=== PATIENT | female | born 1970 | race Caucasian/White ===

== ENCOUNTER 2020-04-25 04:42 | Inpatient (IN) | payer MEDICAID ==
[~2020-04-25] VITALS: Ht 160 cm; Wt 81.8 kg
[~2020-04-25 04:42] MED LIST: CALC0.2535 PO; CARV3.12 PO; CLON0.1T2 PO; FAMO-128 PO; FLUO-167 PO; FOLI0.8T22 PO; FURO-149 PO; GABA300C PO; INSU100I31 SQ; LABE100T5 PO
[2020-04-25 06:28] LABS: BASOPHILS # (AUTO) 0.1 X10'3 (0-0.2); BASOPHILS % (AUTO) 0.6 % (0-1); EOSINOPHILS % (AUTO) 0 % (0-6); HEMATOCRIT 27.8 % (35.0-45.0); HEMOGLOBIN 9.4 g/dl (12.0-16.0); LYMPHOCYTES # (AUTO) 0.4 X10'3 (1.1-4.8); LYMPHOCYTES % (AUTO) 4.6 % (21-51); MEAN CORPUSCULAR HEMOGLOBIN 31.1 PG (27.0-31.0); MEAN CORPUSCULAR HGB CONC 33.6 g/dL (33.0-36.5); MEAN CORPUSCULAR VOLUME 92.4 FL (78-98); MEAN PLATELET VOLUME 8.5 FL (7.4-10.4); MONOCYTES # (AUTO) 0.5 X10'3 (0-0.9); MONOCYTES % (AUTO) 5.9 % (2-12); NEUTROPHILS # (AUTO) 8.2 X10'3 (1.8-7.7); NEUTROPHILS % (AUTO) 88.9 % (42-75); PLATELET COUNT 235 X10'3 (140-440); RED BLOOD COUNT 3.01 X10'6 (4.20-5.60); RED CELL DISTRIBUTION WIDTH 21.4 % (11.5-14.5); WHITE BLOOD COUNT 9.2 X10'3 (4.5-11.0)
[2020-04-25 06:43] LABS: ALANINE AMINOTRANSFERASE 38 U/L (12-78); ALBUMIN 3.4 G/DL (3.4-5.0); ALBUMIN/GLOBULIN RATIO 0.8 (1.1-1.5); ALKALINE PHOSPHATASE 97 IU/L (46-116); ANION GAP 18 (8-16); ASPARTATE AMINO TRANSFERASE 15 U/L (10-37); BILIRUBIN,TOTAL 0.8 MG/DL (0.1-1.0); BLOOD UREA NITROGEN 95 MG/DL (7-18); BUN/CREATININE RATIO 7.9 (6.6-38.0); CALCIUM 9.6 MG/DL (8.5-10.1); CHLORIDE 107 MMOL/L (99-107); CREATININE 12.01 MG/DL (0.40-0.90); GLUCOSE 153 MG/DL (70-104); POTASSIUM 5.7 MMOL/L (3.5-5.1); SODIUM 145 MMOL/L (135-145); TOTAL CARBON DIOXIDE 20.1 MMOL/L (24-32); TOTAL PROTEIN 7.6 G/DL (6.4-8.2); eGFR 3 ML/MIN
[2020-04-25 06:48] LABS: LIPASE 96 U/L (73-393); MAGNESIUM 2.7 MG/DL (1.5-2.4); PHOSPHORUS 8.9 MG/DL (2.3-4.5)
[2020-04-25 07:01] LABS: ANISOCYTOSIS 3+; PLATELET ESTIMATE NORMAL; POLYCHROMASIA 1+
[2020-04-25 07:02] LABS: ELLIPTOCYTES 1+; SCHISTOCYTES FEW
[2020-04-25] MEDS ORDERED: acetaminophen 325mg tablet PO PRN (08:35)
[2020-04-25] MEDS ORDERED: epoetin 20,000 units/ml inj IV ONE (08:35)
[2020-04-25] MEDS ORDERED: normal saline 1000ml 250 ML IV PRN (08:35)
[2020-04-25] MEDS ORDERED: heparin 1,000unit/ml 10ml vial 10 ML IV ONE (08:35)
[2020-04-25] MEDS ORDERED: heparin 1,000 units/ml 10ml inj HE ONE ×2 (08:40)
[2020-04-25] MEDS: ondansetron/PF 4mg/2ml inj IV PRN ×2 (10:45→16:59)
--- NOTE | 2020-04-25 12:00 | NUR ---
notified charge nurse parminder that pt is waiting for dialysis her bp is 217 systolic and pt is getting upset as per charge she is suppose to get room upstair,parminder is going to call to get the information about her plan.
--- NOTE | 2020-04-25 12:18 | NUR ---
spoke to dr downs regarding pt condition ,notified that pt is c/o nausea,bloating ,high bp with pending dialysis, pt was medicated at 1047 for nausea and now again she is c/o nausea as per md medicate her with zofran 4 mg iv once and do med rec leena she can get her routine meds.will follow the orders.
[2020-04-25] MEDS ORDERED: ondansetron/PF 4mg/2ml inj IV ONE (12:25)
[2020-04-25] MEDS ORDERED: CALC668T PO (12:29)
[2020-04-25] MEDS ORDERED: NIFE-33 PO (12:29)
[2020-04-25] MEDS ORDERED: LISI-600 PO (12:29)
--- NOTE | 2020-04-25 12:43 | NUR ---
unable to collect urine specimen as it got contaminated informed the pt next time if she urinate do not throw tissue in urine as we need specimen in cup.pt verbalized understanding.
--- NOTE | 2020-04-25 13:17 | NUR ---
Received report from AMARJIT Lackey in ED. Awaiting patient arrival to room 3016Y.
--- NOTE | 2020-04-25 13:26 | NUR ---
Patient arrived to room 3017A. Patient arrived via wheelchair and patient ambulated from wheelchair to bed. Vitals are temp. 98.7, HR 89, RR 16, BP 217/101, 91% on room air. Bed locked and lowered, nonskid socks on, call light in reach and in no acute distress.
[2020-04-25] MEDS ORDERED: calcium acetate 667mg (phosLO) tablet PO SCH (16:00)
[2020-04-25] MEDS: furosemide 40mg tablet PO SCH (16:01)
[2020-04-25] MEDS: famotidine 20mg tablet PO SCH (16:01)
[2020-04-25] MEDS: HYDROcodone/acetaminophen 10/325mg tab PO PRN (16:02)
[2020-04-25 18:00] VITALS: BP 233/109
--- NOTE | 2020-04-25 18:18 | NUR ---
Problems reprioritized. Patient report given, questions answered & plan of care reviewed with AMARJIT Rubio. Patient stable at transfer of care.
[2020-04-25] MEDS: docusate sod 100mg capsule PO SCH (20:00)
[2020-04-25] MEDS: cloNIDine 0.1 mg tablet PO SCH (20:15)
[2020-04-25] MEDS: labetalol 100mg tablet PO SCH (20:17)
[2020-04-25] MEDS ORDERED: proCHLORperazine 10 MG/2 ml inj IV PRN (20:25)
[2020-04-25] MEDS: heparin, porcine 5000 units/ml vial SQ SCH (20:39)
[2020-04-25] MEDS: insulin glargine (Lantus) pen - multi-dose SQ SCH (20:50)
[2020-04-25] MEDS ORDERED: NIFEdipine XL 30mg tablet PO SCH (21:00)
[2020-04-25] MEDS ORDERED: lisinopril 20mg tablet PO SCH (21:00)
[2020-04-25 22:00] VITALS: BP 111/46
[2020-04-26 02:00] VITALS: BP 114/53
[2020-04-26] MEDS: HYDROcodone/acetaminophen 10/325mg tab PO PRN ×3 (02:38→13:22)
[2020-04-26 06:00] VITALS: BP 150/49
--- NOTE | 2020-04-26 06:17 | NUR ---
Problems reprioritized. Patient report given, questions answered & plan of care reviewed with Lizzie OCASIO.
[2020-04-26] MEDS: calcium acetate 667mg (phosLO) tablet PO SCH ×2 (07:16→13:22)
[2020-04-26] MEDS: furosemide 40mg tablet PO SCH (07:17)
[2020-04-26] MEDS: cloNIDine 0.1 mg tablet PO SCH ×2 (07:17→13:22)
[2020-04-26] MEDS: labetalol 100mg tablet PO SCH ×2 (07:17→13:21)
[2020-04-26] MEDS: famotidine 20mg tablet PO SCH (07:17)
[2020-04-26] MEDS: heparin, porcine 5000 units/ml vial SQ SCH (07:18)
[2020-04-26] MEDS: docusate sod 100mg capsule PO SCH (07:19)
[2020-04-26] MEDS: insulin glargine (Lantus) pen - multi-dose SQ SCH (07:19)
[2020-04-26] MEDS ORDERED: FLUoxetine 20mg capsule PO SCH (08:00)
[2020-04-26 08:14] LABS: HEMOGLOBIN A1C 7.2 % (4.5-6.2)
[2020-04-26 10:50] LABS: BASOPHILS % (AUTO) 0.5 % (0-1); EOSINOPHILS # (AUTO) 0.1 X10'3 (0-0.9); EOSINOPHILS % (AUTO) 1.6 % (0-6); HEMATOCRIT 24.8 % (35.0-45.0); HEMOGLOBIN 8.3 g/dl (12.0-16.0); LYMPHOCYTES # (AUTO) 0.7 X10'3 (1.1-4.8); LYMPHOCYTES % (AUTO) 8.6 % (21-51); MEAN CORPUSCULAR HEMOGLOBIN 30.8 PG (27.0-31.0); MEAN CORPUSCULAR HGB CONC 33.6 g/dL (33.0-36.5); MEAN CORPUSCULAR VOLUME 91.5 FL (78-98); MEAN PLATELET VOLUME 8.2 FL (7.4-10.4); MONOCYTES # (AUTO) 0.7 X10'3 (0-0.9); MONOCYTES % (AUTO) 8.5 % (2-12); NEUTROPHILS # (AUTO) 6.9 X10'3 (1.8-7.7); NEUTROPHILS % (AUTO) 80.8 % (42-75); PLATELET COUNT 203 X10'3 (140-440); RED BLOOD COUNT 2.71 X10'6 (4.20-5.60); RED CELL DISTRIBUTION WIDTH 21.4 % (11.5-14.5); WHITE BLOOD COUNT 8.5 X10'3 (4.5-11.0)
[2020-04-26 11:00] VITALS: BP 142/56
[2020-04-26 11:03] LABS: ALANINE AMINOTRANSFERASE 35 U/L (12-78); ALBUMIN 2.8 G/DL (3.4-5.0); ALBUMIN/GLOBULIN RATIO 0.8 (1.1-1.5); ALKALINE PHOSPHATASE 80 IU/L (46-116); ANION GAP 10 (8-16); ASPARTATE AMINO TRANSFERASE 21 U/L (10-37); BILIRUBIN,TOTAL 0.6 MG/DL (0.1-1.0); BLOOD UREA NITROGEN 31 MG/DL (7-18); CALCIUM 8.1 MG/DL (8.5-10.1); CHLORIDE 102 MMOL/L (99-107); GLUCOSE 218 MG/DL (70-104); MAGNESIUM 1.9 MG/DL (1.5-2.4); PHOSPHORUS 5.9 MG/DL (2.3-4.5); POTASSIUM 3.9 MMOL/L (3.5-5.1); SODIUM 141 MMOL/L (135-145); TOTAL CARBON DIOXIDE 29.1 MMOL/L (24-32); TOTAL PROTEIN 6.3 G/DL (6.4-8.2)
[2020-04-26 11:09] LABS: BUN/CREATININE RATIO 5.6 (6.6-38.0); CREATININE 5.58 MG/DL (0.40-0.90); eGFR 8 ML/MIN
[2020-04-26 11:39] LABS: PLATELET ESTIMATE NORMAL
[2020-04-26 11:40] LABS: ANISOCYTOSIS 3+; ELLIPTOCYTES 1+; POLYCHROMASIA 1+
--- NOTE | 2020-04-26 14:17 | NUR ---
Spoke with Dr. Sims about patients TDC port, per patient it is itchy and still has stiches in place for over a month. MD does not want to remove stitches. Ask MD is he would like to order DM protocol, said no, he is going to discharge patient.
[2020-04-26 15:00] VITALS: BP 151/58
--- NOTE | 2020-04-26 16:53 | NUR ---
All belongings gathered and sent home with patient. Meds picked up from pharmacy and sent with patient. PIV removed, cannula intact. Dialysis education provided to patient. She will make arrangements for rides to dialysis.
[2020-04-27 05:42] LABS: HBSAG SCREEN Negative (Negative)
== END 2020-04-26 16:50 | disposition home or self-care (01) | DRG 425 ==
LOC: ER 04:42 → ED HOLD 08:33 → PCU 3S 13:29
PROVIDERS: ADMIT Internal Medicine Critical Care Medicine; ATTEND Internal Medicine Critical Care Medicine
PROC: 5A1D70Z Performance of Urinary Filtration, Intermittent, Less than 6 Hours Per Day (ICD-10-PCS; principal; 2020-04-25)
DX: E87.5 Hyperkalemia (principal); I12.0 Hypertensive chronic kidney disease with stage 5 chronic kidney disease or end stage renal disease; N18.6 End stage renal disease; M79.7 Fibromyalgia; I51.7 Cardiomegaly; J44.9 Chronic obstructive pulmonary disease, unspecified; E11.42 Type 2 diabetes mellitus with diabetic polyneuropathy; E11.22 Type 2 diabetes mellitus with diabetic chronic kidney disease; F32.9 Major depressive disorder, single episode, unspecified; F41.9 Anxiety disorder, unspecified; F17.210 Nicotine dependence, cigarettes, uncomplicated; Z99.2 Dependence on renal dialysis; Z90.710 Acquired absence of both cervix and uterus; Z79.4 Long term (current) use of insulin; Z79.899 Other long term (current) drug therapy
CPT/HCPCS: 36415; 71045; 80053; 82948; 83036; 83690; 83735; 84100; 85008; 85025; 87081; 87340; 90935; 93005; 99285; G0378; J0780; J1644; J1815; J2405; Q4081

== ENCOUNTER 2020-06-10 01:11 | Emergency (ER) | payer MEDICAID ==
[~2020-06-10] VITALS: Ht 162.6 cm; Wt 79.0 kg
[~2020-06-10 01:11] MED LIST changes: -CALC0.2535 PO; +CALC668T PO; -CARV3.12 PO; -FOLI0.8T22 PO; -GABA300C PO; +LISI-600 PO; +NIFE-33 PO
[2020-06-10 01:19] VITALS: BP 231/102
--- NOTE | 2020-06-10 01:33 | NUR ---
abd pain protocol not ordered at this time - pt has been seen twice at [facility] in past 48 hrs and also had a CT scan done. aware that nothing has been ordered. Records from [facility] show negative COVID and FLU
== END 2020-06-10 01:53 | disposition left against medical advice (07) ==
LOC: ER 01:11
DX: R51.9 Headache, unspecified (principal); R11.0 Nausea; R10.9 Unspecified abdominal pain; Z53.21 Procedure and treatment not carried out due to patient leaving prior to being seen by health care provider

== ENCOUNTER 2021-04-02 07:08 | Emergency (ER) | payer MEDICAID ==
[~2021-04-02] VITALS: Ht 160 cm; Wt 81.4 kg
[~2021-04-02 07:08] MED LIST changes: -LISI-600 PO; +LISI20TA28 PO
[2021-04-02 08:55] LABS: BASOPHILS # (AUTO) 0.1 X10'3 (0-0.2); BASOPHILS % (AUTO) 0.6 % (0-1); EOSINOPHILS # (AUTO) 0.1 X10'3 (0-0.9); EOSINOPHILS % (AUTO) 0.8 % (0-6); HEMATOCRIT 29.6 % (35.0-45.0); HEMOGLOBIN 9.5 g/dl (12.0-16.0); LYMPHOCYTES # (AUTO) 0.3 X10'3 (1.1-4.8); LYMPHOCYTES % (AUTO) 3.3 % (21-51); MEAN CORPUSCULAR HEMOGLOBIN 32.7 PG (27.0-31.0); MEAN CORPUSCULAR HGB CONC 32.2 g/dL (33.0-36.5); MEAN CORPUSCULAR VOLUME 101.5 FL (78-98); MONOCYTES # (AUTO) 0.4 X10'3 (0-0.9); MONOCYTES % (AUTO) 4.3 % (2-12); NEUTROPHILS # (AUTO) 8.1 X10'3 (1.8-7.7); PLATELET COUNT 238 X10'3 (140-440); RED BLOOD COUNT 2.92 X10'6 (4.20-5.60); RED CELL DISTRIBUTION WIDTH 18.2 % (11.5-14.5); WHITE BLOOD COUNT 8.9 X10'3 (4.5-11.0)
[2021-04-02] MEDS ORDERED: furosemide 10 MG/1 ML 10ml inj IV ONE (09:35)
[2021-04-02] MEDS ORDERED: ipratropium/albuterol 3ml nebule NEB ONE (09:40)
[2021-04-02 10:22] LABS: ALANINE AMINOTRANSFERASE 17 U/L (12-78); ALBUMIN 3.2 G/DL (3.4-5.0); ALBUMIN/GLOBULIN RATIO 0.8 (1.1-1.5); ALKALINE PHOSPHATASE 112 IU/L (46-116); ASPARTATE AMINO TRANSFERASE 9 U/L (10-37); BILIRUBIN,TOTAL 0.9 MG/DL (0.1-1.0); BLOOD UREA NITROGEN 41 MG/DL (7-18); BUN/CREATININE RATIO 5.5 (6.6-38.0); CALCIUM 8.7 MG/DL (8.5-10.1); CHLORIDE 102 MMOL/L (99-107); CREATININE 7.46 MG/DL (0.40-0.90); GLUCOSE 320 MG/DL (70-104); POTASSIUM 4.6 MMOL/L (3.5-5.1); TOTAL CARBON DIOXIDE 22.1 MMOL/L (24-32); TOTAL PROTEIN 7.2 G/DL (6.4-8.2); eGFR 6 ML/MIN
[2021-04-02 10:31] LABS: ANION GAP 18 (8-16); SODIUM 142 MMOL/L (135-145)
[2021-04-02] MEDS ORDERED: LORazepam 2 mg/ml vial IV ONE (11:20)
[2021-04-02] MEDS ORDERED: metoclopramide 5 mg/ml inj IV ONE (11:20)
[2021-04-02 11:22] LABS: ETHANOL < 0.010 GM/DL (0.0-0.010)
[2021-04-02 11:29] LABS: URINE AMPHETAMINE SCREEN NEGATIVE (Neg); URINE BARBITUATE SCREEN NEGATIVE (Neg); URINE BENZODIAZEPINES SCREEN NEGATIVE (Neg); URINE CANNABINOID SCREEN NEGATIVE (Neg); URINE COCAINE SCREEN NEGATIVE (Neg); URINE METHADONE SCREEN NEGATIVE (Neg); URINE OPIATE SCREEN NEGATIVE (Neg); URINE PHENCYCLIDINE SCREEN NEGATIVE (Neg)
[2021-04-02 12:01] LABS: UA COLLECTION TYPE VOIDED
[2021-04-02 12:02] LABS: CLARITY,URINE SLIGHTLY CLOUDY (Clear); COLOR,URINE YELLOW (Yellow); PH,URINE 8.5 (4.8-8.0); PROTEIN,URINE 300 mg/dl (Neg)
[2021-04-02 12:03] LABS: GLUCOSE, URINE >=1000 mg/dl (Neg); KETONES,URINE TRACE mg/dl (Neg); LEUKOCYTE ESTERASE ,URINE NEGATIVE (Neg); NITRITES, URINE NEGATIVE (Neg); OCCULT BLOOD,URINE TRACE-LYSED (Neg); UROBILINOGEN,URINE 0.2 E.U/dL (0.2-1.0)
[2021-04-02 12:07] LABS: BACTERIA,URINE FEW /HPF (Neg); MUCUS STRANDS NONE SEEN /LPF (Neg); SQUAMOUS EPITHELIAL CELL,UR MODERATE /LPF (FEW)
[2021-04-02] MEDS ORDERED: CEPH250T PO (12:13)
[2021-04-02] MEDS ORDERED: ONDA4TAB6 PO (12:14)
[2021-04-02] MEDS ORDERED: CefTRIAXone 2gm/D5W 50ml BAG 50 ML IV ONE (12:15)
--- NOTE | 2021-04-02 13:04 | NUR ---
pt has been up to urinate x 15 since iv lassix.
--- NOTE | 2021-04-02 14:15 | NUR ---
Attempting to discharge pt to her dialysis appointment, pt requires oxygen for transport.
[2021-04-02 14:33] VITALS: BP 188/98
== END 2021-04-02 14:38 | disposition home or self-care (01) ==
LOC: ER 07:09
DX: I13.2 Hypertensive heart and chronic kidney disease with heart failure and with stage 5 chronic kidney disease, or end stage renal disease (principal); E11.22 Type 2 diabetes mellitus with diabetic chronic kidney disease; Z20.822 Contact with and (suspected) exposure to COVID-19; N18.6 End stage renal disease; N39.0 Urinary tract infection, site not specified; R06.02 Shortness of breath; R53.1 Weakness; R09.02 Hypoxemia; J90 Pleural effusion, not elsewhere classified; F17.200 Nicotine dependence, unspecified, uncomplicated; Z99.2 Dependence on renal dialysis; Z79.2 Long term (current) use of antibiotics; Z79.4 Long term (current) use of insulin; Z79.899 Other long term (current) drug therapy
CPT/HCPCS: 36415; 71045; 80053; 80305; 80320; 81001; 83880; 84443; 84484; 85025; 87088; 87635; 93005; 94640; 96365; 96375; 99285; C9803; J0696; J1940; J2060; J2765; 94760

== ENCOUNTER 2021-04-03 13:54 | Emergency (ER) | payer MEDICAID ==
[~2021-04-03] VITALS: Ht 162.6 cm; Wt 84.1 kg
[~2021-04-03 13:54] MED LIST changes: +CEPH250T PO; +ONDA4TAB6 PO
--- NOTE | 2021-04-03 16:38 | NUR ---
informed the provider that pt is c/o back pain ,pt has chronic back pain as well as uti ,pt want something for pain ,as per md order 650 mg tylenol po onces.will follow the orders.
[2021-04-03] MEDS ORDERED: acetaminophen 325mg tablet PO ONE (16:40)
--- NOTE | 2021-04-03 17:05 | NUR ---
call veronica [phone]. Addendum: 04/03/21 at 1709 by HARDY for any update call
[2021-04-03] MEDS ORDERED: HYDROcodone/acetaminophen 5mg/325mg tablet PO ONE ×2 (20:25→20:30)
[2021-04-03 20:58] VITALS: BP 169/93
== END 2021-04-03 21:07 | disposition home or self-care (01) ==
LOC: ER 13:54
DX: N18.6 End stage renal disease (principal); R06.02 Shortness of breath; M54.89 Other dorsalgia; I12.0 Hypertensive chronic kidney disease with stage 5 chronic kidney disease or end stage renal disease; E11.22 Type 2 diabetes mellitus with diabetic chronic kidney disease; J44.9 Chronic obstructive pulmonary disease, unspecified; F17.200 Nicotine dependence, unspecified, uncomplicated; Z99.2 Dependence on renal dialysis; Z79.2 Long term (current) use of antibiotics; Z79.899 Other long term (current) drug therapy; Z79.4 Long term (current) use of insulin
CPT/HCPCS: 71045; 93005; 99283

== ENCOUNTER 2021-09-14 19:59 | Inpatient (IN) | payer MEDICAID ==
[~2021-09-14] VITALS: Ht 160 cm; Wt 72.7 kg
[~2021-09-14 19:59] MED LIST changes: -CEPH250T PO
[2021-09-14] MEDS ORDERED: LORazepam 2 mg/ml vial IV ONE (20:30)
[2021-09-14] MEDS ORDERED: labetalol 20mg/4ml (5mg/ml) syringe IV ONE (20:30)
[2021-09-14 20:46] LABS: BASOPHILS # (AUTO) 0.1 X10'3 (0-0.2); EOSINOPHILS % (AUTO) 0.3 % (0-6); HEMATOCRIT 34.5 % (35.0-45.0); HEMOGLOBIN 11.3 g/dl (12.0-16.0); LYMPHOCYTES # (AUTO) 0.4 X10'3 (1.1-4.8); LYMPHOCYTES % (AUTO) 8.7 % (21-51); MEAN CORPUSCULAR HEMOGLOBIN 32.1 PG (27.0-31.0); MEAN CORPUSCULAR HGB CONC 32.7 g/dL (33.0-36.5); MEAN CORPUSCULAR VOLUME 98.2 FL (78-98); MEAN PLATELET VOLUME 9.4 FL (7.4-10.4); MONOCYTES # (AUTO) 0.3 X10'3 (0-0.9); MONOCYTES % (AUTO) 5.9 % (2-12); NEUTROPHILS # (AUTO) 4.2 X10'3 (1.8-7.7); NEUTROPHILS % (AUTO) 83.1 % (42-75); PLATELET COUNT 249 X10'3 (140-440); RED BLOOD COUNT 3.51 X10'6 (4.20-5.60); RED CELL DISTRIBUTION WIDTH 18.2 % (11.5-14.5)
[2021-09-14] MEDS ORDERED: furosemide 10 MG/1 ML 10ml inj IV ONE (20:55)
[2021-09-14] MEDS ORDERED: ondansetron/PF 4mg/2ml inj IV ONE (20:55)
[2021-09-14] MEDS: morphine 4 MG/ML inj SYRINge IV PRN ×2 (21:00→21:55)
[2021-09-14] MEDS ORDERED: hydrALAZINE 20mg/ml inj. IV ONE (21:05)
[2021-09-14 21:23] LABS: ALANINE AMINOTRANSFERASE 15 U/L (12-78); ALBUMIN/GLOBULIN RATIO 0.7 (1.1-1.5); ALKALINE PHOSPHATASE 153 IU/L (46-116); ANION GAP 20 (8-16); ASPARTATE AMINO TRANSFERASE 20 U/L (10-37); BILIRUBIN,TOTAL 0.9 MG/DL (0.1-1.0); BLOOD UREA NITROGEN 74 MG/DL (7-18); BUN/CREATININE RATIO 12.6 (6.6-38.0); CALCIUM 9.3 MG/DL (8.5-10.1); CHLORIDE 102 MMOL/L (99-107); CREATININE 5.85 MG/DL (0.40-0.90); GLUCOSE 163 MG/DL (70-104); POTASSIUM 4.3 MMOL/L (3.5-5.1); SODIUM 142 MMOL/L (135-145); TOTAL CARBON DIOXIDE 20.2 MMOL/L (24-32); TOTAL PROTEIN 7.2 G/DL (6.4-8.2); eGFR 8 ML/MIN
--- NOTE | 2021-09-14 21:58 | NUR ---
RELIEVING RN FOR BREAK, MEDICATED PT PER ORDER, SHE C/O PAIN TO RT LOWER ABD
[2021-09-14] MEDS ORDERED: metoclopramide 5 mg/ml inj IV PRN (22:00)
[2021-09-14] MEDS ORDERED: HYDROcodone/acetaminophen 5mg/325mg tablet PO PRN (22:00)
[2021-09-14] MEDS ORDERED: mag hydrox/Alum hydrox/simeth 30ml oral suspension PO PRN (22:00)
[2021-09-14] MEDS ORDERED: DEXTROSE 15 GM of carb/4 tabs (each vial/BOTTLE has 4 tablets) PO PRN ×2 (22:00)
[2021-09-14] MEDS ORDERED: glucagon, human recombinant 1mg kit SUBCUT PRN (22:00)
[2021-09-14] MEDS ORDERED: dextrose 50%-water 50ml dispensing syringe IV PRN ×2 (22:00)
[2021-09-14] MEDS ORDERED: MESSAGE TO PHARMACY PO ONE (22:00)
[2021-09-14] MEDS ORDERED: ondansetron/PF 4mg/2ml inj IV PRN (22:00)
[2021-09-14] MEDS ORDERED: insulin Lispro (HumaLOG) vial - multi-dose SQ SCH (22:00)
[2021-09-14] MEDS ORDERED: morphine 2 MG/ML inj. syringe IV PRN ×2 (22:00)
[2021-09-14] MEDS ORDERED: acetaminophen 325mg tablet PO PRN ×2 (22:00)
[2021-09-14] MEDS ORDERED: magnesium hydroxide 30ml (MOM) UD suspension PO PRN (22:00)
--- NOTE | 2021-09-14 22:05 | NUR ---
PT UP TO BEDSIDE COMMODE WITHOUT ASSIST, PT ALSO STATED AT THE TOP OF HER SURGERY SCAR ON CHEST THERE WAS A "PIMPLE" ABOUT ONE AND A HALF WEEKS AGO, SHE POPPED IT, AND IT HAS BEEN DRAINING "WHITE STUFF OFF AND ON SINCE THEN", REPORT TO MICHELLE OCASIO AND DR KING
[2021-09-14] MEDS: docusate sod 100mg capsule PO SCH (22:17)
[2021-09-14 23:37] LABS: HEMOGLOBIN A1C 9.8 % (4.5-6.2)
[2021-09-15 03:13] VITALS: BP 187/79
[2021-09-15] MEDS: HYDROcodone/acetaminophen 10/325mg tab PO PRN ×2 (04:11→09:24)
[2021-09-15 05:03] VITALS: BP 146/65
[2021-09-15 05:56] LABS: BASOPHILS # (AUTO) 0.1 X10'3 (0-0.2); BASOPHILS % (AUTO) 1.1 % (0-1); EOSINOPHILS % (AUTO) 0.5 % (0-6); HEMATOCRIT 32.1 % (35.0-45.0); HEMOGLOBIN 10.3 g/dl (12.0-16.0); LYMPHOCYTES # (AUTO) 0.9 X10'3 (1.1-4.8); LYMPHOCYTES % (AUTO) 17.9 % (21-51); MEAN CORPUSCULAR HEMOGLOBIN 31.9 PG (27.0-31.0); MEAN CORPUSCULAR HGB CONC 32.1 g/dL (33.0-36.5); MEAN CORPUSCULAR VOLUME 99.3 FL (78-98); MEAN PLATELET VOLUME 9.5 FL (7.4-10.4); MONOCYTES # (AUTO) 0.6 X10'3 (0-0.9); MONOCYTES % (AUTO) 12.9 % (2-12); NEUTROPHILS # (AUTO) 3.3 X10'3 (1.8-7.7); NEUTROPHILS % (AUTO) 67.6 % (42-75); PLATELET COUNT 213 X10'3 (140-440); RED BLOOD COUNT 3.24 X10'6 (4.20-5.60); RED CELL DISTRIBUTION WIDTH 18.4 % (11.5-14.5); WHITE BLOOD COUNT 4.9 X10'3 (4.5-11.0)
[2021-09-15 06:00] VITALS: BP 134/61
[2021-09-15 06:03] LABS: ALBUMIN 2.6 G/DL (3.4-5.0); ANION GAP 16 (8-16); BLOOD UREA NITROGEN 76 MG/DL (7-18); BUN/CREATININE RATIO 12.5 (6.6-38.0); CALCIUM 8.5 MG/DL (8.5-10.1); CHLORIDE 104 MMOL/L (99-107); CREATININE 6.08 MG/DL (0.40-0.90); GLUCOSE 88 MG/DL (70-104); POTASSIUM 4.1 MMOL/L (3.5-5.1); SODIUM 143 MMOL/L (135-145); TOTAL CARBON DIOXIDE 23.1 MMOL/L (24-32); eGFR 7 ML/MIN
[2021-09-15] MEDS ORDERED: albumin (human) 25% 100ml IV 100 ML IV PRN (07:35)
[2021-09-15] MEDS ORDERED: heparin 1,000unit/ml 10ml vial 10 ML IV ONE (07:35)
[2021-09-15] MEDS ORDERED: heparin 1,000 units/ml 10ml inj IV ONE (07:35)
[2021-09-15] MEDS ORDERED: ATOR-2 PO (09:16)
[2021-09-15] MEDS ORDERED: CALC0.253 PO (09:16)
[2021-09-15] MEDS ORDERED: ALLO100T56 PO (09:16)
[2021-09-15] MEDS ORDERED: LOP12.5T PO (09:16)
[2021-09-15] MEDS ORDERED: CINA30TA7 PO (09:16)
[2021-09-15] MEDS ORDERED: CLOP75TA15 PO (09:16)
[2021-09-15] MEDS ORDERED: ASPI-611 PO (09:16)
[2021-09-15] MEDS ORDERED: LISI2.5T89 PO (09:16)
[2021-09-15] MEDS ORDERED: TOPI25TA15 PO (09:16)
[2021-09-15] MEDS ORDERED: MILK175C5 PO (09:16)
[2021-09-15] MEDS ORDERED: FURO80TA3 PO (09:16)
[2021-09-15] MEDS ORDERED: GABA-530 PO ×2 (09:16)
[2021-09-15] MEDS ORDERED: PHO667C PO (09:16)
[2021-09-15] MEDS: heparin, porcine 5000 units/ml vial SQ SCH ×2 (09:25→20:21)
[2021-09-15] MEDS ORDERED: clopidogrel 75mg tablet PO ONE (09:35)
--- NOTE | 2021-09-15 10:28 | NUR ---
Page Accepted Message: Christofer Francisco RM [id number] is experiencing itching all over. States she takes Benadryl at home. Can we order a PRN for itching? [facility] [id number].
--- NOTE | 2021-09-15 10:54 | NUR ---
Malnutrition/DM consult: Pt presenting with nausea, vomiting, diarrhea and abdominal pain, possible viral gastroenteritis; also ESRD on HD per EMR. Noted hx of DM, A1c 9.8. Provided pt w/ written and verbal DM ed w/ RD contact info. Pt states she has lost some weight over the last few months but was unable to specify how much. She reports decreased appetite the last 2 days because of abd pain, though it is getting better now. No visible signs of muscle or fat wasting observed at bedside. Noted w/ BLE trace edema. At this time, pt does not meet minimum criteria for malnutrition. Will continue to monitor. Addendum: 09/15/21 at [address] Amended: Links added.
[2021-09-15 11:00] VITALS: BP 106/55
[2021-09-15] MEDS ORDERED: heparin 1,000 units/ml 10ml inj HE ONE ×2 (11:05)
[2021-09-15] MEDS: calcitriol 0.25mcg capsule PO SCH (11:30)
[2021-09-15] MEDS: cinacalcet 30mg tablet PO SCH (11:30)
--- NOTE | 2021-09-15 11:44 | NUR ---
Page Accepted Message: Christofer Emani Francisco RM [id number] is requesting medication for itching. She takes Benadryl at home. Can we please get a PRN order. [facility] [id number]
[2021-09-15] MEDS: lisinopril 2.5mg tablet PO SCH (11:56)
[2021-09-15] MEDS: clopidogrel 75mg tablet PO SCH (11:56)
[2021-09-15] MEDS: atorvastatin 20mg tablet PO SCH (11:56)
[2021-09-15] MEDS: metoprolol tartrate 25mg tablet PO SCH ×2 (11:57→20:20)
[2021-09-15] MEDS: FLUoxetine 20mg capsule PO SCH (11:57)
[2021-09-15] MEDS ORDERED: diphenhydrAMINE 25mg capsule PO PRN (12:25)
[2021-09-15] MEDS ORDERED: diphenhydrAMINE 50 mg/ml inj IV ONE (12:30)
[2021-09-15] MEDS: calcium acetate 667mg (PhosLO) capsule PO SCH (13:24)
[2021-09-15 15:00] VITALS: BP 103/51
--- NOTE | 2021-09-15 17:35 | NUR ---
Pt 1700 blood sugar 45. pt asymptomatic and states she feels fine. Gave Lyman juice and will recheck. WCTM
--- NOTE | 2021-09-15 18:30 | NUR ---
Patient in room PCU 3014. I have received report from AMARJIT Munguia and had the opportunity to ask questions and assume patient care. Patient has been having some hypoglycemia 45/55 and now 99, I will continue to monitor.
[2021-09-15] MEDS: docusate sod 100mg capsule PO SCH (20:00)
[2021-09-15] MEDS: furosemide 40mg tablet PO SCH (20:20)
[2021-09-15] MEDS: topiramate 25mg tablet PO SCH (20:20)
[2021-09-15] MEDS ORDERED: gabapentin 100mg capsule PO SCH (21:00)
[2021-09-15] MEDS ORDERED: insulin glargine (Lantus) pen - multi-dose SQ SCH (21:00)
[2021-09-15 22:00] VITALS: BP 129/62
[2021-09-16 02:00] VITALS: BP 147/60
--- NOTE | 2021-09-16 06:09 | NUR ---
Problems reprioritized. Patient report given, questions answered & plan of care reviewed with AMARJIT Munguia.
[2021-09-16 07:10] LABS: BASOPHILS # (AUTO) 0.1 X10'3 (0-0.2); BASOPHILS % (AUTO) 1.5 % (0-1); EOSINOPHILS # (AUTO) 0.2 X10'3 (0-0.9); EOSINOPHILS % (AUTO) 3.5 % (0-6); HEMATOCRIT 35.2 % (35.0-45.0); HEMOGLOBIN 11.4 g/dl (12.0-16.0); LYMPHOCYTES # (AUTO) 0.8 X10'3 (1.1-4.8); LYMPHOCYTES % (AUTO) 16.5 % (21-51); MEAN CORPUSCULAR HEMOGLOBIN 32.1 PG (27.0-31.0); MEAN CORPUSCULAR HGB CONC 32.3 g/dL (33.0-36.5); MEAN CORPUSCULAR VOLUME 99.4 FL (78-98); MEAN PLATELET VOLUME 9.3 FL (7.4-10.4); MONOCYTES # (AUTO) 0.6 X10'3 (0-0.9); MONOCYTES % (AUTO) 11.3 % (2-12); NEUTROPHILS # (AUTO) 3.3 X10'3 (1.8-7.7); NEUTROPHILS % (AUTO) 67.2 % (42-75); PLATELET COUNT 216 X10'3 (140-440); RED BLOOD COUNT 3.54 X10'6 (4.20-5.60); RED CELL DISTRIBUTION WIDTH 18.7 % (11.5-14.5)
[2021-09-16 07:25] LABS: ALBUMIN 2.7 G/DL (3.4-5.0); ANION GAP 12 (8-16); BLOOD UREA NITROGEN 47 MG/DL (7-18); BUN/CREATININE RATIO 9.8 (6.6-38.0); CALCIUM 8.2 MG/DL (8.5-10.1); CHLORIDE 103 MMOL/L (99-107); CREATININE 4.82 MG/DL (0.40-0.90); GLUCOSE 123 MG/DL (70-104); PHOSPHORUS 6.9 MG/DL (2.3-4.5); POTASSIUM 4.2 MMOL/L (3.5-5.1); SODIUM 141 MMOL/L (135-145); TOTAL CARBON DIOXIDE 26.4 MMOL/L (24-32); eGFR 10 ML/MIN
[2021-09-16] MEDS: heparin, porcine 5000 units/ml vial SQ SCH (08:00)
[2021-09-16] MEDS ORDERED: MILK THISTLE SEED EXTRACT PO SCH (08:00)
[2021-09-16] MEDS ORDERED: gabapentin 100mg capsule PO SCH (08:00)
[2021-09-16] MEDS ORDERED: aspirin 81mg, enteric-coated 1 TAB TABLET.DR PO SCH (08:00)
[2021-09-16] MEDS: calcium acetate 667mg (PhosLO) capsule PO SCH (08:00)
[2021-09-16] MEDS ORDERED: allopurinol 100mg tablet PO SCH (08:00)
[2021-09-16 08:17] LABS: ANISOCYTOSIS 2+; PLATELET ESTIMATE NORMAL
[2021-09-16 08:18] LABS: ELLIPTOCYTES FEW; SCHISTOCYTES FEW
[2021-09-16] MEDS: furosemide 40mg tablet PO SCH (08:55)
[2021-09-16] MEDS: atorvastatin 20mg tablet PO SCH (08:55)
[2021-09-16] MEDS: cinacalcet 30mg tablet PO SCH (08:55)
[2021-09-16] MEDS: lisinopril 2.5mg tablet PO SCH (08:56)
[2021-09-16] MEDS: FLUoxetine 20mg capsule PO SCH (08:57)
[2021-09-16] MEDS: docusate sod 100mg capsule PO SCH (08:57)
[2021-09-16 08:58] VITALS: BP_SYST 158
[2021-09-16] MEDS: clopidogrel 75mg tablet PO SCH (08:58)
[2021-09-16] MEDS: metoprolol tartrate 25mg tablet PO SCH (08:58)
[2021-09-16] MEDS: calcitriol 0.25mcg capsule PO SCH (08:59)
[2021-09-16] MEDS: topiramate 25mg tablet PO SCH (09:01)
[2021-09-16] MEDS: HYDROcodone/acetaminophen 10/325mg tab PO PRN (11:15)
--- NOTE | 2021-09-16 11:35 | NUR ---
Spoke to Youth Development Professional and he okayed to DC pt to home. Advised pt to go to 1pm Dialysis tx at [facility] but pt refused to go treatment today. Pt advised that and educated about the importance of keeping dialysis txs
--- NOTE | 2021-09-16 12:14 | NUR ---
per orders pt discharged home. Pt left via wheelchair and was picked up by daughter. IV and Tele removed. Pt provided with education on medications and encouraged to keep dialysis appts. Pt left with all belongings.
== END 2021-09-16 12:03 | disposition home or self-care (01) | DRG 249 ==
LOC: ER 20:00 → ED HOLD 22:08 → PCU 3S 09-15 02:50
PROVIDERS: ADMIT Internal Medicine; ATTEND Internal Medicine
PROC: 5A1D70Z Performance of Urinary Filtration, Intermittent, Less than 6 Hours Per Day (ICD-10-PCS; principal; 2021-09-15)
DX: A08.4 Viral intestinal infection, unspecified (principal); I13.2 Hypertensive heart and chronic kidney disease with heart failure and with stage 5 chronic kidney disease, or end stage renal disease; N18.6 End stage renal disease; R18.8 Other ascites; E11.22 Type 2 diabetes mellitus with diabetic chronic kidney disease; E11.40 Type 2 diabetes mellitus with diabetic neuropathy, unspecified; Z95.1 Presence of aortocoronary bypass graft; I50.9 Heart failure, unspecified; F32.A Depression, unspecified; R19.7 Diarrhea, unspecified; Z20.822 Contact with and (suspected) exposure to COVID-19; F17.210 Nicotine dependence, cigarettes, uncomplicated; I25.10 Atherosclerotic heart disease of native coronary artery without angina pectoris; E78.5 Hyperlipidemia, unspecified; J44.9 Chronic obstructive pulmonary disease, unspecified; Z99.2 Dependence on renal dialysis; Z91.14 Patient's other noncompliance with medication regimen; I25.2 Old myocardial infarction; Z79.899 Other long term (current) drug therapy; Z98.891 History of uterine scar from previous surgery; Z71.6 Tobacco abuse counseling
CPT/HCPCS: 36415; 71045; 74176; 80048; 80053; 82948; 83036; 83735; 83880; 84100; 84484; 85008; 85025; 87081; 87635; 93005; 96374; 96375; 99285; C9803; G0257; G0378; J0360; J0604; J1200; J1644; J1815; J1940; J2270; J2405; J3490

== ENCOUNTER 2021-10-01 16:53 | Emergency (ER) | payer MEDICAID ==
[~2021-10-01] VITALS: Ht 160 cm; Wt 77.3 kg
[~2021-10-01 16:53] MED LIST changes: +ALLO100T56 PO; +ASPI-611 PO; +ATOR-2 PO; +CALC0.253 PO; -CALC668T PO; +CINA30TA7 PO; -CLON0.1T2 PO; +CLOP75TA15 PO; -FAMO-128 PO; -FURO-149 PO; +FURO80TA3 PO; +GABA-530 PO; -INSU100I31 SQ; -LABE100T5 PO; +LISI2.5T89 PO; -LISI20TA28 PO; +LOP12.5T PO; +MILK175C5 PO; -NIFE-33 PO; -ONDA4TAB6 PO; +PHO667C PO; +TOPI25TA15 PO
--- NOTE | 2021-10-01 19:57 | NUR ---
Pt notes that she has dialysis on Tuesdays, , and Wednesday. port is on right upper chest area. No BP readings or blood draws in right arm.
[2021-10-01 20:21] LABS: BASOPHILS # (AUTO) 0.1 X10'3 (0-0.2); BASOPHILS % (AUTO) 1.1 % (0-1); EOSINOPHILS % (AUTO) 0 % (0-6); HEMATOCRIT 36.1 % (35.0-45.0); HEMOGLOBIN 11.7 g/dl (12.0-16.0); LYMPHOCYTES # (AUTO) 0.6 X10'3 (1.1-4.8); LYMPHOCYTES % (AUTO) 7.9 % (21-51); MEAN CORPUSCULAR HEMOGLOBIN 31.4 PG (27.0-31.0); MEAN CORPUSCULAR HGB CONC 32.4 g/dL (33.0-36.5); MEAN PLATELET VOLUME 9.1 FL (7.4-10.4); MONOCYTES # (AUTO) 0.6 X10'3 (0-0.9); MONOCYTES % (AUTO) 8.3 % (2-12); NEUTROPHILS % (AUTO) 82.7 % (42-75); PLATELET COUNT 255 X10'3 (140-440); RED BLOOD COUNT 3.73 X10'6 (4.20-5.60); RED CELL DISTRIBUTION WIDTH 18.5 % (11.5-14.5); WHITE BLOOD COUNT 7.3 X10'3 (4.5-11.0)
[2021-10-01 20:31] LABS: APTT 29 SECONDS (22-32)
[2021-10-01 20:33] LABS: ALANINE AMINOTRANSFERASE 14 U/L (12-78); ALBUMIN 3.1 G/DL (3.4-5.0); ALBUMIN/GLOBULIN RATIO 0.7 (1.1-1.5); ALKALINE PHOSPHATASE 185 IU/L (46-116); ANION GAP 16 (8-16); ASPARTATE AMINO TRANSFERASE 16 U/L (10-37); BLOOD UREA NITROGEN 56 MG/DL (7-18); BUN/CREATININE RATIO 10.7 (6.6-38.0); CALCIUM 8.4 MG/DL (8.5-10.1); CHLORIDE 98 MMOL/L (99-107); CREATININE 5.24 MG/DL (0.40-0.90); GLUCOSE 178 MG/DL (70-104); LIPASE < 50 U/L (73-393); POTASSIUM 5.1 MMOL/L (3.5-5.1); SODIUM 141 MMOL/L (135-145); TOTAL CARBON DIOXIDE 26.9 MMOL/L (24-32); TOTAL PROTEIN 7.4 G/DL (6.4-8.2); eGFR 9 ML/MIN
--- NOTE | 2021-10-01 21:04 | NUR ---
PT FELL ASLEEP AND I NOTICED OXYGEN SATURATION DROPPED TO 82% ON RA WITH A GOOD PLETH WAVE. WOKE PT UP. PT REPORTED HAVING HX OF SLEEP APNEA AND USING A CPAP AT HOME. STARTED PT ON 2 L O2 NC TO SLEEP. WILL CONTINUE TO MONITOR PT. NO OTHER COMPLAINTS AT THIS TIME. PT HAS HAD NO EMESIS DURING HER STAY AT THIS TIME.
[2021-10-01] MEDS ORDERED: ondansetron/PF 4mg/2ml inj IV ONE (21:25)
[2021-10-01] MEDS ORDERED: normal saline 1000ML IV soln IVB ONE (21:25)
[2021-10-01] MEDS ORDERED: morphine 4 MG/ML inj SYRINge IV PRN (21:40)
[2021-10-01 22:22] VITALS: BP 181/88
[2021-10-02] MEDS ORDERED: ONDA-103 PO (21:06)
[2021-10-02] MEDS ORDERED: TOPI25TA49 PO (21:06)
== END 2021-10-01 22:24 | disposition home or self-care (01) ==
LOC: ER 16:54
DX: R11.2 Nausea with vomiting, unspecified (principal); R19.7 Diarrhea, unspecified; G89.29 Other chronic pain; J44.9 Chronic obstructive pulmonary disease, unspecified; I12.0 Hypertensive chronic kidney disease with stage 5 chronic kidney disease or end stage renal disease; E11.22 Type 2 diabetes mellitus with diabetic chronic kidney disease; N18.6 End stage renal disease; F17.200 Nicotine dependence, unspecified, uncomplicated; Z99.2 Dependence on renal dialysis; Z79.82 Long term (current) use of aspirin; Z79.899 Other long term (current) drug therapy
CPT/HCPCS: 36415; 80053; 83690; 85025; 85610; 85730; 86870; 86880; 86885; 86900; 86901; 96374; 96375; 99284; J2270; J2405; J7030

== ENCOUNTER 2021-10-02 19:39 | Emergency (ER) | payer MEDICAID ==
[~2021-10-02] VITALS: Ht 160 cm; Wt 77.3 kg
[2021-10-02 20:25] LABS: BASOPHILS # (AUTO) 0.1 X10'3 (0-0.2); BASOPHILS % (AUTO) 1.2 % (0-1); EOSINOPHILS % (AUTO) 0.6 % (0-6); HEMATOCRIT 34.4 % (35.0-45.0); HEMOGLOBIN 11.2 g/dl (12.0-16.0); LYMPHOCYTES # (AUTO) 0.5 X10'3 (1.1-4.8); LYMPHOCYTES % (AUTO) 9.3 % (21-51); MEAN CORPUSCULAR HEMOGLOBIN 31.7 PG (27.0-31.0); MEAN CORPUSCULAR HGB CONC 32.7 g/dL (33.0-36.5); MEAN CORPUSCULAR VOLUME 97.1 FL (78-98); MEAN PLATELET VOLUME 9.4 FL (7.4-10.4); MONOCYTES # (AUTO) 0.4 X10'3 (0-0.9); MONOCYTES % (AUTO) 7.7 % (2-12); NEUTROPHILS # (AUTO) 4.7 X10'3 (1.8-7.7); NEUTROPHILS % (AUTO) 81.2 % (42-75); PLATELET COUNT 242 X10'3 (140-440); RED BLOOD COUNT 3.54 X10'6 (4.20-5.60); RED CELL DISTRIBUTION WIDTH 19.1 % (11.5-14.5); WHITE BLOOD COUNT 5.8 X10'3 (4.5-11.0)
[2021-10-02 20:40] LABS: ALANINE AMINOTRANSFERASE 18 U/L (12-78); ALBUMIN 2.9 G/DL (3.4-5.0); ALBUMIN/GLOBULIN RATIO 0.7 (1.1-1.5); ALKALINE PHOSPHATASE 165 IU/L (46-116); ANION GAP 11 (8-16); ASPARTATE AMINO TRANSFERASE 21 U/L (10-37); BILIRUBIN,TOTAL 1.1 MG/DL (0.1-1.0); BLOOD UREA NITROGEN 31 MG/DL (7-18); BUN/CREATININE RATIO 8.8 (6.6-38.0); CALCIUM 8.1 MG/DL (8.5-10.1); CHLORIDE 101 MMOL/L (99-107); CREATININE 3.52 MG/DL (0.40-0.90); GLUCOSE 127 MG/DL (70-104); POTASSIUM 3.9 MMOL/L (3.5-5.1); SODIUM 140 MMOL/L (135-145); TOTAL CARBON DIOXIDE 28.2 MMOL/L (24-32); TOTAL PROTEIN 6.8 G/DL (6.4-8.2); eGFR 14 ML/MIN
[2021-10-02] MEDS ORDERED: cloNIDine 0.1 mg tablet PO ONE (20:55)
[2021-10-02] MEDS ORDERED: TOPI25TA49 PO (21:06)
[2021-10-02] MEDS ORDERED: ONDA-103 PO (21:06)
--- NOTE | 2021-10-02 21:24 | NUR ---
Pt pink, alert, no acute/resp distress. Bed in lowest position, wheels locked, rail 2/2 up, call myers in reach. Pt states she is normally on home O2 2L via NC, however she does not want to wear it right now.
[2021-10-02 21:45] LABS: ANISOCYTOSIS 2+; PLATELET ESTIMATE NORMAL
--- NOTE | 2021-10-02 22:03 | NUR ---
ERP does not want a PIV started at this time per Ryan OCASIO. Pt pink, alert, no acute/resp distress. Bed in lowest position, wheels locked, rail 2/2 up, call myers in reach.
[2021-10-02] MEDS ORDERED: proCHLORperazine 10 MG/2 ml inj IM ONE (22:20)
[2021-10-02] MEDS ORDERED: HYDROcodone/acetaminophen 10/325mg tab PO ONE (22:20)
[2021-10-02] MEDS ORDERED: ondansetron 4mg rapidly disintigrating tab PO ONE (22:20)
[2021-10-02 22:40] VITALS: BP 165/78
== END 2021-10-02 22:42 | disposition home or self-care (01) ==
LOC: ER 19:40
DX: I10 Essential (primary) hypertension (principal); R51.9 Headache, unspecified; R11.0 Nausea; I12.0 Hypertensive chronic kidney disease with stage 5 chronic kidney disease or end stage renal disease; E11.22 Type 2 diabetes mellitus with diabetic chronic kidney disease; N18.6 End stage renal disease; Z99.2 Dependence on renal dialysis; Z79.82 Long term (current) use of aspirin; Z79.899 Other long term (current) drug therapy
CPT/HCPCS: 36415; 71045; 80053; 83880; 84484; 85008; 85025; 93005; 99285

== ENCOUNTER 2021-10-27 02:14 | Inpatient (IN) | payer MEDICAID ==
[~2021-10-27] VITALS: Ht 160 cm; Wt 77.0 kg
[~2021-10-27 02:14] MED LIST changes: +ONDA-103 PO; +TOPI25TA49 PO
[2021-10-27] MEDS ORDERED: ondansetron/PF 4mg/2ml inj IV ONE (04:00)
[2021-10-27] MEDS ORDERED: morphine 4 MG/ML inj SYRINge IV ONE ×2 (04:00→06:35)
[2021-10-27 04:04] LABS: BASOPHILS # (AUTO) 0.1 X10'3 (0-0.2); BASOPHILS % (AUTO) 0.8 % (0-1); EOSINOPHILS # (AUTO) 0.2 X10'3 (0-0.9); EOSINOPHILS % (AUTO) 2.8 % (0-6); HEMATOCRIT 33.6 % (35.0-45.0); HEMOGLOBIN 10.8 g/dl (12.0-16.0); LYMPHOCYTES # (AUTO) 0.5 X10'3 (1.1-4.8); LYMPHOCYTES % (AUTO) 7.6 % (21-51); MEAN CORPUSCULAR HEMOGLOBIN 31.5 PG (27.0-31.0); MEAN CORPUSCULAR HGB CONC 32.1 g/dL (33.0-36.5); MEAN CORPUSCULAR VOLUME 98.3 FL (78-98); MEAN PLATELET VOLUME 9.7 FL (7.4-10.4); MONOCYTES # (AUTO) 0.4 X10'3 (0-0.9); MONOCYTES % (AUTO) 7.1 % (2-12); NEUTROPHILS % (AUTO) 81.7 % (42-75); PLATELET COUNT 210 X10'3 (140-440); RED BLOOD COUNT 3.41 X10'6 (4.20-5.60); WHITE BLOOD COUNT 6.1 X10'3 (4.5-11.0)
[2021-10-27 04:06] LABS: ALANINE AMINOTRANSFERASE 6 U/L (12-78); ALBUMIN 2.5 G/DL (3.4-5.0); ALBUMIN/GLOBULIN RATIO 0.6 (1.1-1.5); ALKALINE PHOSPHATASE 178 IU/L (46-116); ANION GAP 12 (8-16); ASPARTATE AMINO TRANSFERASE 11 U/L (10-37); BILIRUBIN,TOTAL 0.8 MG/DL (0.1-1.0); BLOOD UREA NITROGEN 51 MG/DL (7-18); BUN/CREATININE RATIO 9.6 (6.6-38.0); CALCIUM 8.2 MG/DL (8.5-10.1); CHLORIDE 99 MMOL/L (99-107); CREATININE 5.33 MG/DL (0.40-0.90); GLUCOSE 256 MG/DL (70-104); POTASSIUM 3.8 MMOL/L (3.5-5.1); SODIUM 137 MMOL/L (135-145); TOTAL CARBON DIOXIDE 26.4 MMOL/L (24-32); TOTAL PROTEIN 6.4 G/DL (6.4-8.2); eGFR 9 ML/MIN
[2021-10-27 04:13] LABS: CLARITY,URINE CLOUDY (Clear); COLOR,URINE YELLOW (Yellow); GLUCOSE, URINE 500 mg/dl (Neg); KETONES,URINE NEGATIVE (Neg); LEUKOCYTE ESTERASE ,URINE TRACE (Neg); NITRITES, URINE NEGATIVE (Neg); OCCULT BLOOD,URINE SMALL (Neg); PROTEIN,URINE >=300 mg/dl (Neg); UROBILINOGEN,URINE 0.2 E.U/dL (0.2-1.0)
[2021-10-27 04:14] LABS: UA COLLECTION TYPE NON-SPECIFIED
[2021-10-27 04:23] LABS: BACTERIA,URINE 3+ /HPF (Neg); MUCUS STRANDS FEW /LPF (Neg); RBC,URINE 0-2 /HPF (0-2); SQUAMOUS EPITHELIAL CELL,UR MANY /LPF (FEW)
[2021-10-27] MEDS ORDERED: aspirin 325mg tablet PO ONE (04:25)
[2021-10-27] MEDS ORDERED: cefTRIAXone 1g/NS 100ml IVPB 100 ML IV ONE (04:50)
[2021-10-27 05:26] LABS: PLATELET ESTIMATE NORMAL
[2021-10-27 05:27] LABS: ANISOCYTOSIS 2+
[2021-10-27 05:28] LABS: LARGE PLATELETS FEW
[2021-10-27] MEDS ORDERED: acetaminophen 325mg tablet PO PRN (10:40)
[2021-10-27] MEDS ORDERED: potassium CL 10mEq/100ml bag 100 ML IV PRN (10:40)
[2021-10-27] MEDS ORDERED: magnesium 4gm in 100ml NS 100 ML IV PRN (10:40)
[2021-10-27] MEDS ORDERED: POTASSIUM BICARB 20meq eff tab 20 MEQ TABLET.EFF PO PRN ×2 (10:40)
[2021-10-27] MEDS ORDERED: morphine 2 MG/ML inj. syringe IV PRN (10:40)
[2021-10-27] MEDS ORDERED: PERFLUTREN PROTEIN-A MICROSPHR (Optison) 0.22 MG/ML 3ML VIAL IV ONE (10:40)
[2021-10-27] MEDS ORDERED: ondansetron/PF 4mg/2ml inj IV PRN (10:40)
[2021-10-27] MEDS ORDERED: magnesium Cl slow-release 64mg tablet PO PRN (10:40)
[2021-10-27] MEDS ORDERED: magnesium 2GM in 50ml NS 50 ML IV PRN (10:40)
[2021-10-27 12:03] LABS: MAGNESIUM 2.1 MG/DL (1.5-2.4)
[2021-10-27] MEDS: normal saline 1000ml 1,000 ML IV SCH (13:09)
--- NOTE | 2021-10-27 15:22 | NUR ---
SBAR TO SAY RN AND MARINAE DTO CALL DR RODRIGUEZ FOR HYPERGLYCEMIA PROTOCOL AND HbA1C AND ALOS CONFIRM THE ORDER TO CONTINUE THE ROCEPHIN FOR UTI.
--- NOTE | 2021-10-27 15:54 | NUR ---
Patient in room PCU 3013. I have received report from bar OCASIO and had the opportunity to ask questions and assume patient care.
[2021-10-27] MEDS ORDERED: insulin Lispro (HumaLOG) vial - multi-dose SQ SCH (16:10)
[2021-10-27] MEDS ORDERED: MESSAGE TO PHARMACY PO ONE (16:10)
[2021-10-27] MEDS ORDERED: dextrose 50%-water 50ml dispensing syringe IV PRN ×2 (16:10)
[2021-10-27] MEDS ORDERED: glucagon, human recombinant 1mg kit SUBCUT PRN (16:10)
[2021-10-27] MEDS ORDERED: DEXTROSE 15 GM of carb/4 tabs (each vial/BOTTLE has 4 tablets) PO PRN ×2 (16:10)
[2021-10-27] MEDS: HYDROcodone/acetaminophen 5mg/325mg tablet PO PRN ×2 (16:28→20:03)
[2021-10-27 18:30] VITALS: BP 168/75
--- NOTE | 2021-10-27 18:38 | NUR ---
1600 patient orientated to room. orders received from DR Trujillo for Renal diet, hypo/hyper glycemic protocol. and to continue with trops. patient given norco for pain with good result. patient resting at time of report. report given to abimael OCASIO
[2021-10-27] MEDS: K and/or MAG REPLACEMENT MC SCH (20:00)
[2021-10-27] MEDS: docusate sod 100mg capsule PO SCH (20:02)
[2021-10-27] MEDS: insulin glargine (Lantus) pen - multi-dose SQ SCH (21:00)
[2021-10-27] MEDS ORDERED: temazepam 15mg capsule PO PRN (21:00)
[2021-10-27 22:38] VITALS: BP 170/80
[2021-10-28] MEDS: HYDROcodone/acetaminophen 5mg/325mg tablet PO PRN ×4 (01:01→20:36)
[2021-10-28 02:00] VITALS: BP 112/56
--- NOTE | 2021-10-28 06:40 | NUR ---
Problems reprioritized. Patient report given, questions answered & plan of care reviewed with Obdulia. Addendum: 10/28/21 at 0641 by Tye Bell RN Amended: Links added.
--- NOTE | 2021-10-28 06:41 | NUR ---
Patient in room PCU 3013. I have received report from Dmitriy OCASIO and had the opportunity to ask questions and assume patient care.
[2021-10-28 06:48] LABS: BASOPHILS # (AUTO) 0.1 X10'3 (0-0.2); BASOPHILS % (AUTO) 1.7 % (0-1); EOSINOPHILS # (AUTO) 0.2 X10'3 (0-0.9); EOSINOPHILS % (AUTO) 5.3 % (0-6); HEMATOCRIT 32.9 % (35.0-45.0); HEMOGLOBIN 10.4 g/dl (12.0-16.0); LYMPHOCYTES # (AUTO) 0.7 X10'3 (1.1-4.8); LYMPHOCYTES % (AUTO) 14.9 % (21-51); MEAN CORPUSCULAR HGB CONC 31.6 g/dL (33.0-36.5); MEAN CORPUSCULAR VOLUME 98.2 FL (78-98); MEAN PLATELET VOLUME 9.5 FL (7.4-10.4); MONOCYTES # (AUTO) 0.5 X10'3 (0-0.9); MONOCYTES % (AUTO) 10.6 % (2-12); NEUTROPHILS # (AUTO) 3.1 X10'3 (1.8-7.7); NEUTROPHILS % (AUTO) 67.5 % (42-75); PLATELET COUNT 200 X10'3 (140-440); RED BLOOD COUNT 3.35 X10'6 (4.20-5.60); RED CELL DISTRIBUTION WIDTH 19.8 % (11.5-14.5); WHITE BLOOD COUNT 4.6 X10'3 (4.5-11.0)
[2021-10-28 07:00] VITALS: BP 152/67
[2021-10-28 07:07] LABS: ALBUMIN 2.3 G/DL (3.4-5.0); ANION GAP 13 (8-16); BLOOD UREA NITROGEN 58 MG/DL (7-18); CHLORIDE 101 MMOL/L (99-107); CREATININE 6.44 MG/DL (0.40-0.90); GLUCOSE 138 MG/DL (70-104); MAGNESIUM 2.3 MG/DL (1.5-2.4); POTASSIUM 4.4 MMOL/L (3.5-5.1); SODIUM 138 MMOL/L (135-145); TOTAL CARBON DIOXIDE 24.1 MMOL/L (24-32); eGFR 7 ML/MIN
[2021-10-28] MEDS: docusate sod 100mg capsule PO SCH ×2 (07:29→20:00)
[2021-10-28] MEDS: K and/or MAG REPLACEMENT MC SCH ×2 (07:47→20:00)
--- NOTE | 2021-10-28 10:44 | NUR ---
DM consult: Pt with T2DM, current A1c is 10.0%. Attempted visit with pt at bedside however pt sleeping and did not wake with verbal cues. Written DM education with RD contact information placed at bedside. Pt seen by PETE at previous admit 09/15 for written and verbal DM education. Will continue to follow. Addendum: 10/28/21 at [address] Amended: Links added.
[2021-10-28 11:00] VITALS: BP 169/80
[2021-10-28] MEDS ORDERED: heparin 1,000unit/ml 10ml vial 10 ML IV ONE (13:15)
[2021-10-28] MEDS ORDERED: normal saline 1000ml 250 ML IV PRN (13:15)
[2021-10-28] MEDS ORDERED: EPOETIN ALFA-EPBX 20,000 UNIT/ML 1 ML MDV IV ONE (13:15)
[2021-10-28] MEDS ORDERED: heparin 1,000 units/ml 10ml inj HE ONE ×2 (13:20)
[2021-10-28 15:00] VITALS: BP 133/68
[2021-10-28 18:45] VITALS: BP 108/74
[2021-10-28] MEDS: insulin glargine (Lantus) pen - multi-dose SQ SCH (21:00)
[2021-10-28 22:00] VITALS: BP 162/63
[2021-10-29 02:00] VITALS: BP 110/68
[2021-10-29] MEDS: HYDROcodone/acetaminophen 5mg/325mg tablet PO PRN ×2 (02:26→10:45)
[2021-10-29 06:00] VITALS: BP 148/62
[2021-10-29 06:33] LABS: BASOPHILS # (AUTO) 0.1 X10'3 (0-0.2); BASOPHILS % (AUTO) 1.6 % (0-1); EOSINOPHILS # (AUTO) 0.1 X10'3 (0-0.9); EOSINOPHILS % (AUTO) 2.4 % (0-6); HEMATOCRIT 32.7 % (35.0-45.0); HEMOGLOBIN 10.5 g/dl (12.0-16.0); LYMPHOCYTES # (AUTO) 0.7 X10'3 (1.1-4.8); LYMPHOCYTES % (AUTO) 13.4 % (21-51); MEAN CORPUSCULAR HEMOGLOBIN 31.8 PG (27.0-31.0); MEAN CORPUSCULAR HGB CONC 32.2 g/dL (33.0-36.5); MEAN CORPUSCULAR VOLUME 98.5 FL (78-98); MEAN PLATELET VOLUME 9.7 FL (7.4-10.4); MONOCYTES # (AUTO) 0.5 X10'3 (0-0.9); NEUTROPHILS # (AUTO) 3.6 X10'3 (1.8-7.7); NEUTROPHILS % (AUTO) 72.6 % (42-75); PLATELET COUNT 218 X10'3 (140-440); RED BLOOD COUNT 3.32 X10'6 (4.20-5.60); RED CELL DISTRIBUTION WIDTH 19.4 % (11.5-14.5)
[2021-10-29 06:36] LABS: ALBUMIN 2.5 G/DL (3.4-5.0); ANION GAP 9 (8-16); BLOOD UREA NITROGEN 41 MG/DL (7-18); BUN/CREATININE RATIO 9.1 (6.6-38.0); CALCIUM 8.2 MG/DL (8.5-10.1); CHLORIDE 100 MMOL/L (99-107); CREATININE 4.53 MG/DL (0.40-0.90); GLUCOSE 104 MG/DL (70-104); MAGNESIUM 2.2 MG/DL (1.5-2.4); POTASSIUM 4.4 MMOL/L (3.5-5.1); SODIUM 137 MMOL/L (135-145); TOTAL CARBON DIOXIDE 27.6 MMOL/L (24-32); eGFR 10 ML/MIN
--- NOTE | 2021-10-29 06:38 | NUR ---
Problems reprioritized. Patient report given, questions answered & plan of care reviewed with Tania. Addendum: 10/29/21 at 0638 by Tye Bell RN Amended: Links added.
[2021-10-29] MEDS: K and/or MAG REPLACEMENT MC SCH (08:00)
[2021-10-29] MEDS: docusate sod 100mg capsule PO SCH (08:00)
[2021-10-29] MEDS: normal saline 1000ml 1,000 ML IV SCH (10:40)
[2021-10-29 11:00] VITALS: BP 194/84
--- NOTE | 2021-10-29 11:31 | NUR ---
PAGER ID: [phone] MESSAGE: Sandra Francisco [id number] BP 170/69 73 HR Nothing PRN ordered for BP. Do you want assess pt. before discharge? Tania [id number]
[2021-10-29 12:00] VITALS: BP 178/68
--- NOTE | 2021-10-29 12:40 | NUR ---
Hospitalist returned page via phone call per radiology asst and states do not discharge pt. until she rounds on pt. MD has not assessed pt. at this time.
[2021-10-29] MEDS ORDERED: hydrALAZINE 20mg/ml inj. IV ONE (13:20)
[2021-10-29 13:30] VITALS: BP 186/83
[2021-10-29 13:38] VITALS: BP_SYST 76
--- NOTE | 2021-10-29 14:23 | NUR ---
DISCHARGE NOTE: Pt. discharged home. PIV DC'd, cannula intact, and pressure bandage applied, no s/sx bleeding noted.
[2021-10-30 17:46] LABS: HBSAG SCREEN Negative (Negative)
[2021-11-10] MEDS ORDERED: NOR5T PO (11:16)
== END 2021-10-29 14:25 | disposition home or self-care (01) | DRG 143 ==
LOC: ER 02:15 → ED HOLD 10:52 → EDBEDREQ 15:05 → PCU 3S 15:36
PROVIDERS: ADMIT Internal Medicine; ATTEND Internal Medicine
PROC: 5A1D70Z Performance of Urinary Filtration, Intermittent, Less than 6 Hours Per Day (ICD-10-PCS; principal; 2021-10-28)
DX: D49.1 Neoplasm of unspecified behavior of respiratory system (principal); I50.23 Acute on chronic systolic (congestive) heart failure; N18.6 End stage renal disease; E11.22 Type 2 diabetes mellitus with diabetic chronic kidney disease; J90 Pleural effusion, not elsewhere classified; R16.0 Hepatomegaly, not elsewhere classified; D64.9 Anemia, unspecified; E78.5 Hyperlipidemia, unspecified; F17.210 Nicotine dependence, cigarettes, uncomplicated; I25.10 Atherosclerotic heart disease of native coronary artery without angina pectoris; J44.9 Chronic obstructive pulmonary disease, unspecified; Z20.822 Contact with and (suspected) exposure to COVID-19; M10.9 Gout, unspecified; F32.A Depression, unspecified; G89.29 Other chronic pain; N39.0 Urinary tract infection, site not specified; M54.9 Dorsalgia, unspecified; R59.0 Localized enlarged lymph nodes; R77.8 Other specified abnormalities of plasma proteins; Z99.2 Dependence on renal dialysis; Z90.710 Acquired absence of both cervix and uterus; Z95.1 Presence of aortocoronary bypass graft; Z98.891 History of uterine scar from previous surgery; Z79.899 Other long term (current) drug therapy; I13.2 Hypertensive heart and chronic kidney disease with heart failure and with stage 5 chronic kidney disease, or end stage renal disease
CPT/HCPCS: 36415; 71045; 71250; 74176; 80048; 80053; 81001; 82948; 83036; 83605; 83735; 84484; 85008; 85025; 87040; 87081; 87340; 93306; 96365; 96375; 96376; 97161; 97530; 99285; G0257; G0378; J0360; J0696; J1644; J1815; J2270; J2405; J7030; Q4081

== ENCOUNTER 2021-11-06 19:21 | Inpatient (IN) | payer MEDICAID ==
[~2021-11-06] VITALS: Ht 160 cm; Wt 78.0 kg
[~2021-11-06 19:21] MED LIST changes: -ONDA-103 PO; -TOPI25TA49 PO
[2021-11-06 20:15] LABS: BASOPHILS # (AUTO) 0.1 X10'3 (0-0.2); EOSINOPHILS # (AUTO) 0.1 X10'3 (0-0.9); EOSINOPHILS % (AUTO) 1.3 % (0-6); HEMATOCRIT 32.6 % (35.0-45.0); HEMOGLOBIN 10.8 g/dl (12.0-16.0); LYMPHOCYTES # (AUTO) 0.4 X10'3 (1.1-4.8); LYMPHOCYTES % (AUTO) 5.6 % (21-51); MEAN CORPUSCULAR HEMOGLOBIN 31.7 PG (27.0-31.0); MEAN CORPUSCULAR HGB CONC 33.2 g/dL (33.0-36.5); MEAN CORPUSCULAR VOLUME 95.7 FL (78-98); MEAN PLATELET VOLUME 9.2 FL (7.4-10.4); MONOCYTES # (AUTO) 0.5 X10'3 (0-0.9); MONOCYTES % (AUTO) 7.7 % (2-12); NEUTROPHILS # (AUTO) 5.4 X10'3 (1.8-7.7); NEUTROPHILS % (AUTO) 84.4 % (42-75); PLATELET COUNT 209 X10'3 (140-440); RED BLOOD COUNT 3.41 X10'6 (4.20-5.60); RED CELL DISTRIBUTION WIDTH 19.5 % (11.5-14.5); WHITE BLOOD COUNT 6.4 X10'3 (4.5-11.0)
[2021-11-06 20:44] LABS: ALANINE AMINOTRANSFERASE 9 U/L (12-78); ALBUMIN 2.5 G/DL (3.4-5.0); ALBUMIN/GLOBULIN RATIO 0.6 (1.1-1.5); ALKALINE PHOSPHATASE 182 IU/L (46-116); ANION GAP 12 (8-16); ASPARTATE AMINO TRANSFERASE 14 U/L (10-37); BLOOD UREA NITROGEN 44 MG/DL (7-18); BUN/CREATININE RATIO 9.8 (6.6-38.0); CALCIUM 8.6 MG/DL (8.5-10.1); CHLORIDE 100 MMOL/L (99-107); GLUCOSE 204 MG/DL (70-104); POTASSIUM 3.7 MMOL/L (3.5-5.1); SODIUM 138 MMOL/L (135-145); TOTAL CARBON DIOXIDE 26.3 MMOL/L (24-32); TOTAL PROTEIN 6.6 G/DL (6.4-8.2); eGFR 10 ML/MIN
[2021-11-06 20:48] LABS: ANISOCYTOSIS 2+; PLATELET ESTIMATE NORMAL
[2021-11-06 20:49] LABS: SCHISTOCYTES 1+
[2021-11-06] MEDS ORDERED: morphine 4 MG/ML inj SYRINge IV ONE (21:25)
[2021-11-06] MEDS ORDERED: nitroGLYCERIN 0.4mg/hour patch TD ONE (21:25)
[2021-11-06] MEDS ORDERED: ondansetron/PF 4mg/2ml inj IV ONE (21:25)
[2021-11-06] MEDS ORDERED: aspirin 81mg tab.chew PO ONE (21:25)
[2021-11-06] MEDS ORDERED: heparin 10,000 units/1 ML INJ IV ONE (21:35)
--- NOTE | 2021-11-06 22:30 | NUR ---
ED Provider overseeing patient (AARON) came and stated she did not want the heparin given. Medication canceled per VO.
[2021-11-06] MEDS ORDERED: acetaminophen 325mg tablet PO ONE (22:35)
[2021-11-06] MEDS ORDERED: morphine 2 MG/ML inj. syringe IV PRN (22:40)
[2021-11-06] MEDS: hydrALAZINE 20mg/ml inj. IV PRN (22:56)
[2021-11-06] MEDS ORDERED: albuterol 2.5 MG/3 ML nebule NEB PRN (23:05)
[2021-11-06] MEDS ORDERED: glucagon, human recombinant 1mg kit SUBCUT PRN (23:05)
[2021-11-06] MEDS ORDERED: POTASSIUM BICARB 20meq eff tab 20 MEQ TABLET.EFF PO PRN ×2 (23:05)
[2021-11-06] MEDS ORDERED: dextrose 50%-water 50ml dispensing syringe IV PRN ×2 (23:05)
[2021-11-06] MEDS ORDERED: HYDROcodone/acetaminophen 5mg/325mg tablet PO PRN (23:05)
[2021-11-06] MEDS ORDERED: potassium CL 10mEq/100ml bag 100 ML IV PRN (23:05)
[2021-11-06] MEDS ORDERED: ipratropium/albuterol 3ml nebule NEB PRN (23:05)
[2021-11-06] MEDS ORDERED: acetaminophen 325mg tablet PO PRN (23:05)
[2021-11-06] MEDS ORDERED: DEXTROSE 15 GM of carb/4 tabs (each vial/BOTTLE has 4 tablets) PO PRN ×2 (23:05)
[2021-11-06] MEDS ORDERED: MESSAGE TO PHARMACY PO ONE (23:05)
[2021-11-06] MEDS ORDERED: nicotine 14mg patch - 24hr TD ONE (23:05)
[2021-11-06] MEDS ORDERED: mag hydrox/Alum hydrox/simeth 30ml oral suspension PO PRN (23:05)
[2021-11-06] MEDS ORDERED: magnesium 2GM in 50ml NS 50 ML IV PRN (23:05)
[2021-11-06] MEDS ORDERED: magnesium 4gm in 100ml NS 100 ML IV PRN (23:05)
[2021-11-06] MEDS ORDERED: insulin Lispro (HumaLOG) vial - multi-dose SQ SCH (23:05)
[2021-11-07 02:24] LABS: BASOPHILS # (AUTO) 0.1 X10'3 (0-0.2); BASOPHILS % (AUTO) 1.1 % (0-1); EOSINOPHILS # (AUTO) 0.1 X10'3 (0-0.9); EOSINOPHILS % (AUTO) 1.8 % (0-6); HEMATOCRIT 33.6 % (35.0-45.0); LYMPHOCYTES # (AUTO) 0.7 X10'3 (1.1-4.8); LYMPHOCYTES % (AUTO) 11.5 % (21-51); MEAN CORPUSCULAR HEMOGLOBIN 31.7 PG (27.0-31.0); MEAN CORPUSCULAR HGB CONC 32.7 g/dL (33.0-36.5); MEAN PLATELET VOLUME 9.2 FL (7.4-10.4); MONOCYTES # (AUTO) 0.6 X10'3 (0-0.9); MONOCYTES % (AUTO) 9.7 % (2-12); NEUTROPHILS # (AUTO) 4.5 X10'3 (1.8-7.7); NEUTROPHILS % (AUTO) 75.9 % (42-75); PLATELET COUNT 191 X10'3 (140-440); RED BLOOD COUNT 3.46 X10'6 (4.20-5.60); RED CELL DISTRIBUTION WIDTH 20.1 % (11.5-14.5); WHITE BLOOD COUNT 5.9 X10'3 (4.5-11.0)
[2021-11-07 02:34] LABS: ALANINE AMINOTRANSFERASE 8 U/L (12-78); ALBUMIN 2.4 G/DL (3.4-5.0); ALBUMIN/GLOBULIN RATIO 0.6 (1.1-1.5); ALKALINE PHOSPHATASE 166 IU/L (46-116); ANION GAP 11 (8-16); ASPARTATE AMINO TRANSFERASE 14 U/L (10-37); BILIRUBIN,TOTAL 0.8 MG/DL (0.1-1.0); BLOOD UREA NITROGEN 45 MG/DL (7-18); BUN/CREATININE RATIO 9.6 (6.6-38.0); CALCIUM 8.5 MG/DL (8.5-10.1); CHLORIDE 101 MMOL/L (99-107); CREATININE 4.67 MG/DL (0.40-0.90); GLUCOSE 128 MG/DL (70-104); SODIUM 138 MMOL/L (135-145); TOTAL CARBON DIOXIDE 26.2 MMOL/L (24-32); TOTAL PROTEIN 6.3 G/DL (6.4-8.2); eGFR 10 ML/MIN
[2021-11-07 02:36] LABS: POTASSIUM 3.9 MMOL/L (3.5-5.1)
[2021-11-07 02:47] LABS: ANISOCYTOSIS 2+; LARGE PLATELETS FEW; PLATELET ESTIMATE NORMAL; SCHISTOCYTES 1+
--- NOTE | 2021-11-07 03:08 | NUR ---
REPORTED CRITICAL TROPONIN TO DR SANTIAGO VIA PHONE. HE GAVE INSTRUCTIONS TO CHECK TROPONIN IN 6 HRS. ORDER PLACED.
[2021-11-07] MEDS: morphine 4 MG/ML inj SYRINge IV PRN ×2 (04:59→10:53)
[2021-11-07] MEDS: hydrALAZINE 20mg/ml inj. IV PRN ×2 (05:00→22:27)
[2021-11-07] MEDS: HYDROcodone/acetaminophen 10/325mg tab PO PRN ×3 (06:53→17:56)
[2021-11-07] MEDS: docusate sod 100mg capsule PO SCH ×2 (07:07→20:00)
[2021-11-07] MEDS: heparin, porcine 5000 units/ml vial SQ SCH ×2 (07:08→20:46)
[2021-11-07] MEDS: K and/or MAG REPLACEMENT MC SCH ×2 (07:10→20:00)
[2021-11-07] MEDS ORDERED: furosemide 40mg/4ml inj IV SCH (08:00)
[2021-11-07] MEDS: budesonide 0.5mg/2ml UD nebule IH SCH ×2 (08:29→20:03)
[2021-11-07] MEDS: furosemide 10 MG/1 ML 10ml inj IV SCH ×3 (10:44→20:51)
[2021-11-07] MEDS: clopidogrel 75mg tablet PO SCH (13:06)
[2021-11-07] MEDS: calcium acetate 667mg (PhosLO) capsule PO SCH ×2 (13:06→17:45)
[2021-11-07] MEDS: topiramate 25mg tablet PO SCH ×2 (13:06→20:42)
[2021-11-07] MEDS: metoprolol tartrate 12.5mg (1/2 tablet) PO SCH ×2 (13:07→20:44)
[2021-11-07] MEDS: allopurinol 100mg tablet PO SCH (13:07)
[2021-11-07] MEDS: FLUoxetine 20mg capsule PO SCH (13:07)
[2021-11-07] MEDS: lisinopril 2.5mg tablet PO SCH (13:07)
[2021-11-07] MEDS: calcitriol 0.25mcg capsule PO SCH (13:27)
--- NOTE | 2021-11-07 16:11 | NUR ---
pT BROUGHT UP BY Vasu woo IN STABLE CONDITION. PT ORIENTED TO ROOM
[2021-11-07 18:00] VITALS: BP 110/54
[2021-11-07] MEDS ORDERED: gabapentin 100mg capsule PO SCH (21:00)
[2021-11-07] MEDS ORDERED: insulin glargine (Lantus) pen - multi-dose SQ SCH (21:00)
[2021-11-07 22:00] VITALS: BP 171/76
[2021-11-07] MEDS ORDERED: temazepam 15mg capsule PO PRN (22:20)
[2021-11-07] MEDS: ondansetron/PF 4mg/2ml inj IV PRN (22:22)
[2021-11-07 23:30] VITALS: BP 138/78
[2021-11-08 02:00] VITALS: BP 119/50
[2021-11-08] MEDS: furosemide 10 MG/1 ML 10ml inj IV SCH (02:10)
[2021-11-08] MEDS: HYDROcodone/acetaminophen 10/325mg tab PO PRN (04:47)
[2021-11-08] MEDS: ondansetron/PF 4mg/2ml inj IV PRN ×2 (04:47→11:11)
[2021-11-08 06:00] VITALS: BP 122/58
[2021-11-08 06:33] LABS: BASOPHILS # (AUTO) 0.1 X10'3 (0-0.2); EOSINOPHILS # (AUTO) 0.1 X10'3 (0-0.9); HEMOGLOBIN 11.4 g/dl (12.0-16.0); LYMPHOCYTES # (AUTO) 0.4 X10'3 (1.1-4.8); LYMPHOCYTES % (AUTO) 5.4 % (21-51); MEAN CORPUSCULAR HEMOGLOBIN 32.4 PG (27.0-31.0); MEAN CORPUSCULAR HGB CONC 32.5 g/dL (33.0-36.5); MEAN CORPUSCULAR VOLUME 99.7 FL (78-98); MEAN PLATELET VOLUME 9.9 FL (7.4-10.4); MONOCYTES # (AUTO) 0.6 X10'3 (0-0.9); MONOCYTES % (AUTO) 8.2 % (2-12); NEUTROPHILS # (AUTO) 5.7 X10'3 (1.8-7.7); NEUTROPHILS % (AUTO) 83.4 % (42-75); PLATELET COUNT 218 X10'3 (140-440); RED BLOOD COUNT 3.51 X10'6 (4.20-5.60); RED CELL DISTRIBUTION WIDTH 20.2 % (11.5-14.5); WHITE BLOOD COUNT 6.8 X10'3 (4.5-11.0)
[2021-11-08 06:49] LABS: ALANINE AMINOTRANSFERASE 8 U/L (12-78); ALBUMIN 2.5 G/DL (3.4-5.0); ALBUMIN/GLOBULIN RATIO 0.6 (1.1-1.5); ALKALINE PHOSPHATASE 170 IU/L (46-116); ANION GAP 11 (8-16); ASPARTATE AMINO TRANSFERASE 15 U/L (10-37); BILIRUBIN,TOTAL 0.9 MG/DL (0.1-1.0); BLOOD UREA NITROGEN 57 MG/DL (7-18); CALCIUM 8.6 MG/DL (8.5-10.1); CHLORIDE 99 MMOL/L (99-107); CREATININE 5.68 MG/DL (0.40-0.90); GLUCOSE 100 MG/DL (70-104); MAGNESIUM 2.3 MG/DL (1.5-2.4); POTASSIUM 4.7 MMOL/L (3.5-5.1); SODIUM 137 MMOL/L (135-145); TOTAL CARBON DIOXIDE 27.1 MMOL/L (24-32); TOTAL PROTEIN 6.5 G/DL (6.4-8.2); eGFR 8 ML/MIN
[2021-11-08 07:08] LABS: PLATELET ESTIMATE NORMAL
[2021-11-08 07:09] LABS: ANISOCYTOSIS 3+; ELLIPTOCYTES 1+; LARGE PLATELETS FEW; POIKILOCYTOSIS 1+
[2021-11-08] MEDS: NORMAL SALINE IV SCH ×2 (07:55→13:58)
[2021-11-08] MEDS: FUROSEMIDE IV SCH ×2 (07:55→13:58)
[2021-11-08] MEDS ORDERED: aspirin 81mg, enteric-coated 1 TAB TABLET.DR PO SCH (08:00)
[2021-11-08] MEDS ORDERED: MILK THISTLE SEED EXTRACT PO SCH (08:00)
[2021-11-08] MEDS ORDERED: heparin 1,000 units/ml 10ml inj HE ONE ×4 (08:00→12:05)
[2021-11-08] MEDS ORDERED: normal saline 1000ml 250 ML IV PRN (08:00)
[2021-11-08] MEDS: heparin, porcine 5000 units/ml vial SQ SCH (08:00)
[2021-11-08] MEDS ORDERED: atorvastatin 20mg tablet PO SCH (08:00)
[2021-11-08] MEDS: budesonide 0.5mg/2ml UD nebule IH SCH (08:00)
[2021-11-08] MEDS: K and/or MAG REPLACEMENT MC SCH (08:00)
[2021-11-08] MEDS ORDERED: heparin 1,000unit/ml 10ml vial 10 ML IV ONE ×2 (08:00→12:00)
[2021-11-08] MEDS: calcium acetate 667mg (PhosLO) capsule PO SCH ×2 (08:13→13:00)
[2021-11-08] MEDS: clopidogrel 75mg tablet PO SCH (08:13)
[2021-11-08] MEDS: FLUoxetine 20mg capsule PO SCH (08:15)
[2021-11-08] MEDS: docusate sod 100mg capsule PO SCH (08:16)
[2021-11-08] MEDS: allopurinol 100mg tablet PO SCH (08:18)
[2021-11-08] MEDS: calcitriol 0.25mcg capsule PO SCH (08:42)
--- NOTE | 2021-11-08 09:08 | NUR ---
complain of nausea, MD notified: Dr Delaney, patient complain of nausea, and unable to take breakfast, please advise, current does not have PO anti nausea med, please advise.
--- NOTE | 2021-11-08 11:02 | NUR ---
DM consult: Pt with T2DM, most recent A1c in EMR is 10.0% 10/27. Pt provided with written DM education with RD contact information 10/28 as well as written and verbal DM education the admit prior on 09/15. No further education planned at this time. Will continue to follow. Addendum: 11/08/21 at [address] Amended: Links added.
[2021-11-08 12:00] VITALS: BP 172/97
[2021-11-08] MEDS ORDERED: heparin 1,000 units/ml 10ml inj IV ONE (12:00)
[2021-11-08] MEDS ORDERED: albumin (human) 25% 100ml IV 100 ML IV PRN (12:00)
[2021-11-08] MEDS: topiramate 25mg tablet PO SCH (14:20)
[2021-11-08] MEDS: metoprolol tartrate 12.5mg (1/2 tablet) PO SCH (14:21)
[2021-11-08 14:22] VITALS: BP_SYST 55
[2021-11-08] MEDS: lisinopril 2.5mg tablet PO SCH (14:22)
--- NOTE | 2021-11-08 14:45 | NUR ---
Patient was discharged at 14:35 PM safely.
[2021-11-10] MEDS ORDERED: NOR5T PO (11:16)
== END 2021-11-08 14:51 | disposition home or self-care (01) | DRG 199 ==
LOC: ER 19:21 → ED HOLD 23:11 → PCU 3S 11-07 15:42
PROVIDERS: ADMIT Family Medicine; ATTEND Family Medicine
PROC: 5A1D70Z Performance of Urinary Filtration, Intermittent, Less than 6 Hours Per Day (ICD-10-PCS; principal; 2021-11-08)
DX: I16.1 Hypertensive emergency (principal); J96.01 Acute respiratory failure with hypoxia; I21.A1 Myocardial infarction type 2; I50.23 Acute on chronic systolic (congestive) heart failure; N18.6 End stage renal disease; I42.9 Cardiomyopathy, unspecified; D63.8 Anemia in other chronic diseases classified elsewhere; E11.22 Type 2 diabetes mellitus with diabetic chronic kidney disease; E78.5 Hyperlipidemia, unspecified; F17.210 Nicotine dependence, cigarettes, uncomplicated; I13.2 Hypertensive heart and chronic kidney disease with heart failure and with stage 5 chronic kidney disease, or end stage renal disease; I25.10 Atherosclerotic heart disease of native coronary artery without angina pectoris; J44.9 Chronic obstructive pulmonary disease, unspecified; G89.29 Other chronic pain; M54.9 Dorsalgia, unspecified; H53.8 Other visual disturbances; R51.9 Headache, unspecified; Z90.710 Acquired absence of both cervix and uterus; Z85.118 Personal history of other malignant neoplasm of bronchus and lung; Z82.49 Family history of ischemic heart disease and other diseases of the circulatory system; Z99.2 Dependence on renal dialysis; Z95.1 Presence of aortocoronary bypass graft; Z79.899 Other long term (current) drug therapy; Z79.82 Long term (current) use of aspirin; Z71.6 Tobacco abuse counseling; Z79.84 Long term (current) use of oral hypoglycemic drugs; Z91.14 Patient's other noncompliance with medication regimen
CPT/HCPCS: 36415; 70450; 71045; 80053; 82948; 83735; 83880; 84484; 85008; 85025; 87081; 94640; 94760; 96374; 96375; 99285; A4615; A6402; G0257; G0378; J0360; J1644; J1815; J1940; J2270; J2405; J3490; J7030

== ENCOUNTER 2021-12-17 18:47 | Emergency (ER) | payer MEDICAID ==
[~2021-12-17] VITALS: Ht 160 cm; Wt 72.7 kg
[~2021-12-17 18:47] MED LIST changes: +HYDR-3965 PO; -MILK175C5 PO; +NOR5T PO; +PANT40TA54 PO
[2021-12-17 19:35] LABS: BASOPHILS # (AUTO) 0.1 X10'3 (0-0.2); EOSINOPHILS # (AUTO) 0.2 X10'3 (0-0.9); EOSINOPHILS % (AUTO) 2.3 % (0-6); HEMATOCRIT 31.5 % (35.0-45.0); LYMPHOCYTES # (AUTO) 0.5 X10'3 (1.1-4.8); LYMPHOCYTES % (AUTO) 7.2 % (21-51); MEAN CORPUSCULAR HEMOGLOBIN 30.3 PG (27.0-31.0); MEAN CORPUSCULAR HGB CONC 31.7 g/dL (33.0-36.5); MEAN CORPUSCULAR VOLUME 95.7 FL (78-98); MEAN PLATELET VOLUME 8.7 FL (7.4-10.4); MONOCYTES # (AUTO) 0.6 X10'3 (0-0.9); MONOCYTES % (AUTO) 9.3 % (2-12); NEUTROPHILS # (AUTO) 5.5 X10'3 (1.8-7.7); NEUTROPHILS % (AUTO) 80.2 % (42-75); PLATELET COUNT 355 X10'3 (140-440); RED BLOOD COUNT 3.29 X10'6 (4.20-5.60); RED CELL DISTRIBUTION WIDTH 17.8 % (11.5-14.5); WHITE BLOOD COUNT 6.9 X10'3 (4.5-11.0)
[2021-12-17 19:54] LABS: ALANINE AMINOTRANSFERASE 7 U/L (12-78); ALBUMIN 2.4 G/DL (3.4-5.0); ALBUMIN/GLOBULIN RATIO 0.5 (1.1-1.5); ALKALINE PHOSPHATASE 134 IU/L (46-116); ANION GAP 10 (8-16); ASPARTATE AMINO TRANSFERASE 12 U/L (10-37); BILIRUBIN,TOTAL 0.7 MG/DL (0.1-1.0); BLOOD UREA NITROGEN 28 MG/DL (7-18); BUN/CREATININE RATIO 7.5 (6.6-38.0); CALCIUM 8.6 MG/DL (8.5-10.1); CHLORIDE 98 MMOL/L (99-107); CREATININE 3.71 MG/DL (0.40-0.90); GLUCOSE 143 MG/DL (70-104); LIPASE < 50 U/L (73-393); POTASSIUM 3.6 MMOL/L (3.5-5.1); SODIUM 139 MMOL/L (135-145); TOTAL CARBON DIOXIDE 30.8 MMOL/L (24-32); eGFR 13 ML/MIN
--- NOTE | 2021-12-17 20:47 | NUR ---
SBAR TO DR SMYTH AND CODING COORDINATOR RODRIGO REGARDING PT CONCERN ABOUT VISION CHANGE{FOGGY IN NATURE}HEADACHE ,HIGH BLD PRESSURE AND GENERALIZED WEAKNESS. PER MD RECHECK THE VITALS AND THEN HAVE HER WAIT IN LOBBY UNTILL WE GET OPEN BED.
--- NOTE | 2021-12-17 20:52 | NUR ---
NOTIFIED THE VITALS BP 199/[address] SMYTH AND LASHAWN CHARGE NURSE.
[2021-12-18] MEDS ORDERED: morphine 4 MG/ML inj SYRINge IM ONE (01:45)
[2021-12-18] MEDS ORDERED: ondansetron/PF 4mg/2ml inj IM ONE (01:45)
[2021-12-18 02:18] VITALS: BP 180/79
== END 2021-12-18 02:21 | disposition home or self-care (01) ==
LOC: ER 18:47
DX: G89.29 Other chronic pain (principal); M54.9 Dorsalgia, unspecified; R10.9 Unspecified abdominal pain; R53.1 Weakness; R51.9 Headache, unspecified; J44.9 Chronic obstructive pulmonary disease, unspecified; E11.22 Type 2 diabetes mellitus with diabetic chronic kidney disease; I12.9 Hypertensive chronic kidney disease with stage 1 through stage 4 chronic kidney disease, or unspecified chronic kidney disease; N18.9 Chronic kidney disease, unspecified; M54.50 Low back pain, unspecified; F17.200 Nicotine dependence, unspecified, uncomplicated
CPT/HCPCS: 36415; 80053; 82948; 83690; 85025; 93005; 96372; 99284; J2270; J2405

== ENCOUNTER 2021-12-22 17:49 | Emergency (ER) | payer MEDICAID ==
[~2021-12-22] VITALS: Ht 160 cm; Wt 72.6 kg
--- NOTE | 2021-12-22 18:35 | NUR ---
First encounter with pt that is here for CP with hx of CHF, CABG and RI. Pt is on the cart with caridac monitor placed c/o headache at this time.
[2021-12-22 19:06] LABS: BASOPHILS % (AUTO) 0.2 % (0-1); EOSINOPHILS # (AUTO) 0.2 X10'3 (0-0.9); EOSINOPHILS % (AUTO) 2.3 % (0-6); HEMATOCRIT 26.5 % (35.0-45.0); HEMOGLOBIN 8.7 g/dl (12.0-16.0); LYMPHOCYTES # (AUTO) 0.4 X10'3 (1.1-4.8); LYMPHOCYTES % (AUTO) 5.1 % (21-51); MEAN CORPUSCULAR HEMOGLOBIN 31.1 PG (27.0-31.0); MEAN CORPUSCULAR HGB CONC 32.8 g/dL (33.0-36.5); MEAN CORPUSCULAR VOLUME 94.9 FL (78-98); MONOCYTES # (AUTO) 0.5 X10'3 (0-0.9); MONOCYTES % (AUTO) 7.7 % (2-12); NEUTROPHILS % (AUTO) 84.7 % (42-75); PLATELET COUNT 284 X10'3 (140-440); RED BLOOD COUNT 2.79 X10'6 (4.20-5.60); RED CELL DISTRIBUTION WIDTH 17.9 % (11.5-14.5); WHITE BLOOD COUNT 7.1 X10'3 (4.5-11.0)
[2021-12-22 19:22] LABS: ALANINE AMINOTRANSFERASE 10 U/L (12-78); ALBUMIN 2.2 G/DL (3.4-5.0); ALBUMIN/GLOBULIN RATIO 0.5 (1.1-1.5); ALKALINE PHOSPHATASE 125 IU/L (46-116); ANION GAP 12 (8-16); ASPARTATE AMINO TRANSFERASE 9 U/L (10-37); BILIRUBIN,TOTAL 0.6 MG/DL (0.1-1.0); BLOOD UREA NITROGEN 55 MG/DL (7-18); BUN/CREATININE RATIO 9.4 (6.6-38.0); CALCIUM 8.3 MG/DL (8.5-10.1); CHLORIDE 97 MMOL/L (99-107); CREATININE 5.83 MG/DL (0.40-0.90); GLUCOSE 219 MG/DL (70-104); POTASSIUM 4.5 MMOL/L (3.5-5.1); SODIUM 136 MMOL/L (135-145); TOTAL CARBON DIOXIDE 26.6 MMOL/L (24-32); TOTAL PROTEIN 6.4 G/DL (6.4-8.2); eGFR 8 ML/MIN
--- NOTE | 2021-12-22 20:18 | NUR ---
Pt was up to the bathroom with no problems walking
--- NOTE | 2021-12-22 21:43 | NUR ---
trop 53
[2021-12-22 21:48] VITALS: BP 185/82
[2021-12-22] MEDS ORDERED: morphine 4 MG/ML inj SYRINge IV ONE (21:50)
[2021-12-22] MEDS ORDERED: ondansetron/PF 4mg/2ml inj IV ONE (21:50)
== END 2021-12-22 22:21 | disposition home or self-care (01) ==
LOC: ER 17:50
DX: I12.9 Hypertensive chronic kidney disease with stage 1 through stage 4 chronic kidney disease, or unspecified chronic kidney disease (principal); R07.89 Other chest pain; E11.22 Type 2 diabetes mellitus with diabetic chronic kidney disease; N18.9 Chronic kidney disease, unspecified; G89.29 Other chronic pain; M54.50 Low back pain, unspecified; J44.9 Chronic obstructive pulmonary disease, unspecified
CPT/HCPCS: 36415; 71045; 80053; 83880; 84484; 85025; 93005; 96374; 96375; 99285; J2270; J2405

== ENCOUNTER 2021-12-25 21:16 | Emergency (ER) | payer MEDICAID ==
[~2021-12-25] VITALS: Ht 160 cm; Wt 75.6 kg
[2021-12-25 22:16] LABS: BASOPHILS # (AUTO) 0.1 X10'3 (0-0.2); BASOPHILS % (AUTO) 0.8 % (0-1); EOSINOPHILS # (AUTO) 0.2 X10'3 (0-0.9); EOSINOPHILS % (AUTO) 2.9 % (0-6); HEMATOCRIT 28.4 % (35.0-45.0); HEMOGLOBIN 9.4 g/dl (12.0-16.0); LYMPHOCYTES # (AUTO) 0.3 X10'3 (1.1-4.8); LYMPHOCYTES % (AUTO) 3.9 % (21-51); MEAN CORPUSCULAR HEMOGLOBIN 31.5 PG (27.0-31.0); MEAN CORPUSCULAR VOLUME 95.5 FL (78-98); MEAN PLATELET VOLUME 8.7 FL (7.4-10.4); MONOCYTES # (AUTO) 0.4 X10'3 (0-0.9); MONOCYTES % (AUTO) 5.4 % (2-12); NEUTROPHILS # (AUTO) 6.3 X10'3 (1.8-7.7); PLATELET COUNT 303 X10'3 (140-440); RED BLOOD COUNT 2.98 X10'6 (4.20-5.60); RED CELL DISTRIBUTION WIDTH 18.1 % (11.5-14.5); WHITE BLOOD COUNT 7.2 X10'3 (4.5-11.0)
[2021-12-25 22:26] LABS: ALANINE AMINOTRANSFERASE 9 U/L (12-78); ALBUMIN 2.3 G/DL (3.4-5.0); ALBUMIN/GLOBULIN RATIO 0.5 (1.1-1.5); ALKALINE PHOSPHATASE 138 IU/L (46-116); ANION GAP 12 (8-16); ASPARTATE AMINO TRANSFERASE 6 U/L (10-37); BILIRUBIN,TOTAL 0.6 MG/DL (0.1-1.0); BLOOD UREA NITROGEN 56 MG/DL (7-18); BUN/CREATININE RATIO 10.2 (6.6-38.0); CALCIUM 7.9 MG/DL (8.5-10.1); CHLORIDE 98 MMOL/L (99-107); CREATININE 5.47 MG/DL (0.40-0.90); GLUCOSE 293 MG/DL (70-104); POTASSIUM 4.2 MMOL/L (3.5-5.1); SODIUM 138 MMOL/L (135-145); TOTAL CARBON DIOXIDE 28.1 MMOL/L (24-32); TOTAL PROTEIN 6.6 G/DL (6.4-8.2); eGFR 8 ML/MIN
[2021-12-26] MEDS ORDERED: HYDR-3965 PO (01:24)
[2021-12-26] MEDS ORDERED: oxyCODONE/APAP 5-325mg tablet PO ONE (01:25)
[2021-12-26 01:46] VITALS: BP 174/79
== END 2021-12-26 01:50 | disposition home or self-care (01) ==
LOC: ER 21:16
DX: R10.9 Unspecified abdominal pain (principal); M54.9 Dorsalgia, unspecified; R14.0 Abdominal distension (gaseous); I11.9 Hypertensive heart disease without heart failure; G89.29 Other chronic pain; Z87.448 Personal history of other diseases of urinary system; E11.9 Type 2 diabetes mellitus without complications; J44.9 Chronic obstructive pulmonary disease, unspecified; Z98.890 Other specified postprocedural states; Z79.82 Long term (current) use of aspirin; Z90.49 Acquired absence of other specified parts of digestive tract
CPT/HCPCS: 36415; 71045; 80053; 83880; 84484; 85025; 93005; 99285

== ENCOUNTER 2022-02-06 18:56 | Emergency (ER) | payer MEDICAID ==
[~2022-02-06] VITALS: Ht 160 cm; Wt 78.1 kg
[~2022-02-06 18:56] MED LIST changes: +AMLO5TAB16 PO; -HYDR-3965 PO; -NOR5T PO; +PANT-47 PO; -PANT40TA54 PO
[2022-02-06] MEDS ORDERED: normal saline 1000ML IV soln IVB ONE (19:20)
[2022-02-06] MEDS ORDERED: proCHLORperazine 10 MG/2 ml inj IV ONE (19:20)
[2022-02-06] MEDS ORDERED: famotidine/PF 10 mg/ml inj IV ONE (19:20)
[2022-02-06 19:50] LABS: BASOPHILS # (AUTO) 0.1 X10'3 (0-0.2); BASOPHILS % (AUTO) 0.9 % (0-1); EOSINOPHILS # (AUTO) 0.2 X10'3 (0-0.9); EOSINOPHILS % (AUTO) 2.7 % (0-6); HEMATOCRIT 29.4 % (35.0-45.0); HEMOGLOBIN 9.6 g/dl (12.0-16.0); LYMPHOCYTES # (AUTO) 0.4 X10'3 (1.1-4.8); MEAN CORPUSCULAR HEMOGLOBIN 32.3 PG (27.0-31.0); MEAN CORPUSCULAR HGB CONC 32.6 g/dL (33.0-36.5); MEAN CORPUSCULAR VOLUME 99.1 FL (78-98); MEAN PLATELET VOLUME 8.7 FL (7.4-10.4); MONOCYTES # (AUTO) 0.5 X10'3 (0-0.9); MONOCYTES % (AUTO) 8.1 % (2-12); NEUTROPHILS % (AUTO) 81.3 % (42-75); PLATELET COUNT 251 X10'3 (140-440); RED BLOOD COUNT 2.96 X10'6 (4.20-5.60); RED CELL DISTRIBUTION WIDTH 20.1 % (11.5-14.5); WHITE BLOOD COUNT 6.1 X10'3 (4.5-11.0)
[2022-02-06 20:07] LABS: ANISOCYTOSIS 3+; PLATELET ESTIMATE NORMAL
[2022-02-06 20:08] LABS: ELLIPTOCYTES FEW; POLYCHROMASIA FEW
[2022-02-06 20:13] LABS: ALBUMIN 2.7 G/DL (3.4-5.0); ALBUMIN/GLOBULIN RATIO 0.7 (1.1-1.5); ALKALINE PHOSPHATASE 127 IU/L (46-116); ANION GAP 13 (8-16); ASPARTATE AMINO TRANSFERASE 7 U/L (10-37); BILIRUBIN,TOTAL 0.8 MG/DL (0.1-1.0); BLOOD UREA NITROGEN 43 MG/DL (7-18); BUN/CREATININE RATIO 9.8 (6.6-38.0); CALCIUM 8.1 MG/DL (8.5-10.1); CHLORIDE 98 MMOL/L (99-107); GLUCOSE 171 MG/DL (70-104); LIPASE 69 U/L (73-393); POTASSIUM 4.1 MMOL/L (3.5-5.1); SODIUM 137 MMOL/L (135-145); TOTAL PROTEIN 6.7 G/DL (6.4-8.2); eGFR 11 ML/MIN
[2022-02-06 20:16] LABS: ALANINE AMINOTRANSFERASE < 6 U/L (12-78)
[2022-02-06] MEDS ORDERED: ONDA4TAB12 PO (23:45)
[2022-02-06 23:54] VITALS: BP 174/89
[2022-02-07] MEDS ORDERED: HYDROcodone/acetaminophen 5mg/325mg tablet PO ONE (00:25)
== END 2022-02-07 00:35 | disposition home or self-care (01) ==
LOC: ER 18:57
DX: A08.4 Viral intestinal infection, unspecified (principal); E13.22 Other specified diabetes mellitus with diabetic chronic kidney disease; I12.0 Hypertensive chronic kidney disease with stage 5 chronic kidney disease or end stage renal disease; N18.6 End stage renal disease; Z99.2 Dependence on renal dialysis; J44.9 Chronic obstructive pulmonary disease, unspecified; Z98.890 Other specified postprocedural states; Z90.49 Acquired absence of other specified parts of digestive tract; Z79.899 Other long term (current) drug therapy
CPT/HCPCS: 36415; 80053; 83690; 85008; 85025; 96374; 96375; 99284; J0780; J3490; J7030